=== PATIENT | female | born 1985 | race Caucasian/White ===

== ENCOUNTER 2021-09-11 18:18 | Emergency (ER) | payer MEDICAID, OTHER ==
[~2021-09-11] VITALS: Ht 175.3 cm; Wt 124.3 kg
--- OUTSIDE RECORDS SUMMARY | 2021-09-11 18:24 | XMS REPORT | Encounter Summary ---
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 documented as of this encounter Functional Status Date of Assessment Functional Status Response 09/26/2019 Does the patient have a hearing impairment: No documented as of this encounter Plan of Treatment Not on filedocumented as of this encounter Visit Diagnoses Not on filedocumented in this encounter Care Teams Start Date End Date Truck Bench Mechanic Relationship Specialty 09/21/19 No PcpMartha PCP - General documented as of this encounter
--- OUTSIDE RECORDS SUMMARY | 2021-09-11 18:24 | XMS REPORT ---
Author Author Sierra Holloway [facility] Address [address] [place], [place] [id number] Care Team Providers Care Regulatory Specialist Name Role Phone Savanah Holloway PCP Crispin Shi PreferredProvider Allergies and Adverse Reactions Name Reaction Notes Cipro itching and mouth swells Compazine anaphylaxis Percocet hives and mouth swelling Plan of Treatment Planned Activity Comments Planned Date Planned Time Plan/Goal Coproporphyia 11/20/2019 9:00 AM HIDA SCAN. 11/14/2020 12:00 AM Medications Active Name Start Date Estimated Completion Date SIG Co mments One Touch Verio glucometer 01/08/2020 Use as directe d to test glucose QID Vyvanse 30 mg oral capsule 08/12/2021 10/11/2021 take 1 capsule (30 mg) by oral route once daily in the morning for 30 days Name Start Date Expiration Date SIG Comments Diflucan 150 mg oral tablet 08/28/2014 08/29/2014 take 1 tablet (150 mg) by oral route once for 1 day K-Tab 20 mEq oral tablet extended release 10/29/2014 015 take 2 tablets by oral route daily for 30 days promethazine 12.5 mg oral tablet 11/07/2014 11/21/2014 take 1 tablet by oral route every 4 to 6 hours as needed for 14 days Tylenol-Codeine #3 300-30 mg oral tablet 12/03/2014 12/24/19 15 take 1 tablet by oral route every 6 hours as needed for 20 days ParaGard T 380A 380 square mm intrauterine intrauterine irving ce 01/10/2015 01/11/2015 place 1 device by intrauterine route daily for 1 day Minastrin 24 Fe 1 mg-20 mcg(24) /75 mg (4) oral tablet,chewa ble 08/20/2015 12/10/2015 chew 1 tablet by oral route once daily for 28 days phentermine 37.5 mg oral tablet 08/04/2018 09/03/2018 take 1 tablet (37.5 mg) by oral route once daily before breakfast for 30 days amoxicillin 875 mg oral tablet 08/21/2018 08/31/2018 t edie 1 tablet (875 mg) by oral route every 12 hours for 10 days amoxicillin 500 mg oral capsule 06/14/2019 06/21/2019 take 2 capsules by oral route every 12 hours for 7 days phentermine 37.5 mg oral tablet 07/06/2019 08/05/2019 take 1 tablet (37.5 mg) by oral route once daily one or two hours after breakfast for 30 days Vitamin oral Does n ot take medication Metrogel Vaginal 0.75 % vaginal gel 08/21/2019 08/26/2019 insert 1 applicatorful (37.5 mg) by vaginal route once daily at bedtime for 5 days States does not use sertraline 50 mg oral tablet 03/19/2020 04/18/2020 tessa e 1 tablet (50 mg) by oral route once daily for 30 days States does not take diclofenac sodium 50 mg oral tablet,delayed release (DR/EC) 201905/11/2020 take 1 tablet (50 mg) by oral route 2 times per day for 30 days States does not take phentermine 37.5 mg oral tablet 05/07/2020 06/06/2020 take 1 tablet (37.5 mg) by oral route once daily before breakfast for 30 days Medrol (Nick) 4 mg oral tablets,dose pack 08/25/2020 020 take by oral route as directed per package instructions for 6 days azithromycin 250 mg oral tablet 08/25/2020 08/30/2020 take 2 tablets (500 mg) by oral route once daily for 1 day then 1 tablet (250 mg) by oral route once daily for 4 days clarithromycin 500 mg oral tablet 11/26/2020 12/06/2020 take 1 tablet (500 mg) by oral route 2 times per day for 10 days metronidazole 500 mg oral tablet 11/26/2020 12/03/2020 take 1 tablet (500 mg) by oral route 2 times per day for 7 days Viberzi 75 mg tablet 12/23/2020 01/02/2021 take 1 tabl et (75 mg) by oral route 2 times per day for 10 days amoxicillin 875 mg-potassium clavulanate 125 mg tablet 01/05/2021 01/12/2021 take 1 tablet by oral route every 12 hours for 7 days prednisone 20 mg tablet 01/05/2021 01/10/2021 take 1 t ablet (20 mg) by oral route once daily for 5 days metformin 500 mg oral tablet 01/21/2021 05/21/2021 tessa e 1 tablet (500 mg) by oral route 2 times per day with morning and evening meals for 30 days Breo Ellipta 100 mcg-25 mcg/dose powder for inhalation 02/19/2021 inhale 1 puff by inhalation route once daily at the same time each day Augmentin 875 mg-125 mg tablet 03/12/2021 03/19/2021 t edie 1 tablet by oral route every 12 hours for 7 days prednisone 20 mg tablet 03/18/2021 03/23/2021 Take 2 tabs x 5 d ays; azithromycin 500 mg oral tablet 04/26/2021 04/29/2021 take 1 tablet (500 mg) by oral route once daily for 3 days albuterol sulfate 90 mcg/actuation inhalation HFA aerosol in haler 04/26/2021 05/03/2021 inhale 1 - 2 puffs (90 - 180 mcg) by inh alation route every 6 hours as needed for 7 days metronidazole 500 mg oral tablet 07/16/2021 07/23/2021 take 1 tablet (500 mg) by oral route 2 times per day for 7 days lactulose 10 gram/15 mL oral solution 08/13/2021 08/27/2021 take 15 milliliters by oral route 2 times a day for 14 days Augmentin 875-125 mg oral tablet 09/01/2021 09/08/2021 take 1 tablet by oral route every 12 hours for 7 days Discontinued Name Start Date Discontinued Date SIG Comments Vitamin oral tablet 08/05/2015 tessa e 1 tablet by oral route once daily albuterol sulfate 90 mcg/actuation inhalation HFA aerosol inhale r 09/04/2015 inhale 1 - 2 puffs by inhalation route every 4-6 hours as needed Polytrim 10,000 unit- 1 mg/mL ophthalmic drops 10/30/2015 instill 1 drop into affected eye(s) by ophthalmic route every 6 hours ProAir HFA 90 mcg/actuation inhalation HFA aerosol inhaler 08/0501/21/2021 inhale 1 - 2 puffs (90 - 180 mcg) by inhalation route every 6 hours as needed ondansetron 4 mg oral tablet,disintegrating 11/11/202001/21 dissolve 1 tablet by oral route 3 times a day as needed diclofenac sodium 50 mg oral tablet,delayed release (DR/EC) 202001/21/2021 take 1 tablet (50 mg) by oral route 2 times per day Problem List Description Status Onset Asthma Active Right upper quadrant abdominal pain Active 11/14 ADHD Active 06/05/2021 Anxiety Active 06/05/2021 Porphyria Active 08/04/2021 Vital Signs Date Time BP-Sys(mm[Hg] BP-Johanna(mm[Hg]) HR(bpm) RR(rpm) Temp WT HT HC BMI BSA BMI Percentile O2 Sat(%) 09/11/2021 10:57:00 AM 131 mm[Hg] 76 mm[Hg] 85 {beats}/min 98.4 F 27 6 lbs 69 in 40.7577 kg/m2 2.4688 m2 09/01/2021 9:51:00 AM 128 mm[Hg] 80 mm[Hg] 88 {beats}/min 18 rpm 99 F 274 lbs 69 in 40.46 kg/m2 2.46 m2 99 % 08/04/2021 2:42:00 PM 130 mm[Hg] 80 mm[Hg] 88 {beats}/min 18 rpm 98.8 F 277.312 lbs 69 in 40.9515 kg/m2 2.4746 m2 99 % 08/04/2021 9:12:00 AM 116 mm[Hg] 78 mm[Hg] 108 {beats}/min 20 rpm 97.9 F 274.5 lbs 69 in 40.54 kg/m2 2.46 m2 97 % 07/07/2021 2:55:00 PM 152 mm[Hg] 89 mm[Hg] 94 {beats}/min 99.1 F 27 4 lbs 69 in 40.4623 kg/m2 2.4598 m2 03/12/2021 1:33:00 PM 134 mm[Hg] 86 mm[Hg] 109 {beats}/min 20 rpm 99 F 269 lbs 69 in 39.72 kg/m2 2.44 m2 97 % 01/21/2021 10:20:00 AM 132 mm[Hg] 86 mm[Hg] 78 {beats}/min 18 rpm 98.2 F 270 lbs 69 in 39.8716 kg/m2 2.4418 m2 98 % 12/23/2020 1:07:00 PM 122 mm[Hg] 78 mm[Hg] 105 {beats}/min 18 rpm 99 F 265 lbs 69 in 39.13 kg/m2 2.42 m2 97 % 11/14/2020 1:23:00 PM 128 mm[Hg] 72 mm[Hg] 68 {beats}/min 20 rpm 97.8 F 265 lbs 69 in 39.1333 kg/m2 2.4191 m2 97 % 11/11/2020 3:20:00 PM 132 mm[Hg] 82 mm[Hg] 100 {beats}/min 20 rpm 99 F 273 lbs 69 in 40.31 kg/m2 2.46 m2 98 % 10/07/2020 1:12:00 PM 142 mm[Hg] 82 mm[Hg] 93 {beats}/min 20 rpm 99.1 F 271 lbs 69 in 40.0193 kg/m2 2.4463 m2 99 % 05/07/2020 3:14:00 PM 140 mm[Hg] 80 mm[Hg] 87 {beats}/min 19 rpm 98.6 F 281 lbs 69 in 41.50 kg/m2 2.49 m2 97 % 04/10/2020 3:01:00 PM 120 mm[Hg] 80 mm[Hg] 111 {beats}/min 16 rpm 97.9 F 275 lbs 69 in 40.61 kg/m2 2.4643 m2 99 % 03/18/2020 11:37:00 AM 125 mm[Hg] 80 mm[Hg] 105 {beats}/min 16 rpm 97.9 F 269 lbs 69 in 39.72 kg/m2 2.44 m2 99 % 08/28/2019 4:04:00 PM 133 mm[Hg] 86 mm[Hg] 103 {beats}/min 16 rpm 98.82 7 F 272.375 lbs 69 in 40.2223 kg/m2 2.4525 m2 99 % 08/15/2019 4:07:00 PM 127 mm[Hg] 87 mm[Hg] 83 {beats}/min 98.6 F 273 lbs 69 in 40.31 kg/m2 2.46 m2 07/06/2019 3:36:00 PM 118 mm[Hg] 78 mm[Hg] 88 {beats}/min 18 rpm 98.3 F 273.125 lbs 69 in 40.3331 kg/m2 2.4559 m2 97 % 06/13/2019 4:05:00 PM 120 mm[Hg] 80 mm[Hg] 93 {beats}/min 16 rpm 98.1 F 278 lbs 69 in 41.05 kg/m2 2.48 m2 98 % 08/21/2018 2:39:00 PM 132 mm[Hg] 83 mm[Hg] 76 {beats}/min 18 rpm 98.6 F 246.375 lbs 69 in 36.3829 kg/m2 2.3325 m2 100 % 08/04/2018 2:33:00 PM 120 mm[Hg] 70 mm[Hg] 92 {beats}/min 16 rpm 96.7 F 240 lbs 69 in 35.44 kg/m2 2.30 m2 98 % 07/04/2018 2:17:00 PM 130 mm[Hg] 80 mm[Hg] 80 {beats}/min 18 rpm 98.4 F 244 lbs 69 in 36.0321 kg/m2 2.3212 m2 100 % 01/27/2016 4:04:00 PM 135 mm[Hg] 73 mm[Hg] 75 {beats}/min 98.8 F 21 8 lbs 64 in 37.42 kg/m2 2.11 m2 12/06/2015 3:42:00 PM 120 mm[Hg] 80 mm[Hg] 74 {beats}/min 16 rpm 96.8 F 224 lbs 69 in 33.0787 kg/m2 2.2241 m2 98 % 11/14/2015 7:10:00 PM 134 mm[Hg] 76 mm[Hg] 85 {beats}/min 18 rpm 97.8 F 232.125 lbs 69 in 34.28 kg/m2 2.26 m2 98 % 10/30/2015 5:36:00 PM 126 mm[Hg] 66 mm[Hg] 102 {beats}/min 18 rpm 97.8 F 230.375 lbs 69 in 34.0201 kg/m2 2.2555 m2 98 % 10/25/2015 3:29:00 PM 128 mm[Hg] 80 mm[Hg] 84 {beats}/min 16 rpm 97.8 F 231 lbs 69 in 34.11 kg/m2 2.26 m2 99 % 09/04/2015 5:28:00 PM 132 mm[Hg] 68 mm[Hg] 93 {beats}/min 18 rpm 98.6 F 234.375 lbs 69 in 34.6108 kg/m2 2.275 m2 98 % 08/20/2015 3:55:00 PM 136 mm[Hg] 77 mm[Hg] 85 {beats}/min 98.8 F 232 lbs 69 in 34.26 kg/m2 2.26 m2 08/06/2015 3:42:00 PM 130 mm[Hg] 80 mm[Hg] 86 {beats}/min 16 rpm 97.8 F 231 lbs 69 in 34.1124 kg/m2 2.2586 m2 99 % 08/05/2015 4:10:00 PM 131 mm[Hg] 85 mm[Hg] 85 {beats}/min 98.2 F 232 lbs 69 in 34.26 kg/m2 2.26 m2 06/28/2015 3:20:00 PM 120 mm[Hg] 80 mm[Hg] 97 {beats}/min 16 rpm 97.6 F 248 lbs 69 in 36.6228 kg/m2 2.3402 m2 98 % 01/10/2015 3:31:00 PM 115 mm[Hg] 72 mm[Hg] 71 {beats}/min 97.2 F 233 lbs 69 in 34.41 kg/m2 2.27 m2 01/07/2015 3:57:00 PM 119 mm[Hg] 75 mm[Hg] 65 {beats}/min 97.7 F 238 lbs 69 in 35.1461 kg/m2 2.2925 m2 12/03/2014 10:45:00 AM 143 mm[Hg] 86 mm[Hg] 74 {beats}/min 98 F 2 33 lbs 69 in 34.41 kg/m2 2.27 m2 07/17/2014 11:48:00 AM 116 mm[Hg] 66 mm[Hg] 80 {beats}/min 97.5 F 242 lbs 69.25 in 35.4792 kg/m2 2.3159 m2 Social History Name Description Comments Alcohol Never Tobacco Never smoker No history of foreign travel Vapor Cigarettes Never History of Procedures Date Ordered Description Order Status 08/05/2015 12:00 AM ASSAY THYROID STIM HORMONE Reviewed 08/05/2015 12:00 AM ASSAY OF GONADOTROPIN ([facility]) Reviewed 08/05/2015 12:00 AM ASSAY OF PROLACTIN Reviewed 08/05/2015 12:00 AM COMPREHEN METABOLIC PANEL Reviewed 08/05/2015 12:00 AM COMPLETE CBC AUTOMATED Reviewed 08/12/2015 12:00 AM US EXAM PELVIC COMPLETE Reviewed 10/25/2015 12:00 AM COMPLETE CBC W/AUTO DIFF WBC Reviewed 10/25/2015 12:00 AM COMPREHEN METABOLIC PANEL Reviewed 10/25/2015 12:00 AM GLYCOSYLATED HEMOGLOBIN TEST Reviewed 11/14/2015 12:00 AM Phenergan, Up to [address] [facility]#8210-4424-25 Reviewed 11/24/2015 12:00 AM THER/PROPH/DIAG INJ SC/IM Reviewed 11/24/2015 12:00 AM REMOVE IMPACTED EAR WAX UNI Reviewed 01/27/2016 12:00 AM REMOVE INTRAUTERINE DEVICE Reviewed 06/13/2019 12:00 AM CUL BACT XCPT URINE BLOOD/STOOL AEROBIC ISOL Reviewed 08/15/2019 4:36 PM URINE TEST Reviewed 08/15/2019 12:00 AM CYTOPATH C/V THIN LAYER Reviewed 08/15/2019 12:00 AM SPECIMEN HANDLING OFFICE-LAB Reviewed 08/15/2019 12:00 AM N.GONORRHOEAE DNA AMP PROB Reviewed 08/15/2019 12:00 AM CHLAMYDIA CULTURE Reviewed 08/15/2019 12:00 AM HIV-1ANTIBODY Reviewed 08/15/2019 12:00 AM URINALYSIS AUTO W/SCOPE Reviewed 08/15/2019 12:00 AM OBSTETRIC PANEL Reviewed 08/15/2019 12:00 AM ASSAY OF FERRITIN Reviewed 08/15/2019 12:00 AM URINE DRUG SCREEN RAPID Reviewed 08/15/2019 12:00 AM GLUCOSE TEST Reviewed 08/15/2019 12:00 AM HEPATITIS C AB TEST Reviewed 08/15/2019 12:00 AM HERPES SIMPLEX TYPE 1 TEST Reviewed 08/15/2019 12:00 AM HERPES SIMPLEX TYPE 2 TEST Reviewed 08/15/2019 12:00 AM DETECT AGENT NOS DNA AMP Reviewed 08/15/2019 12:00 AM TRICHOMONAS VAGINALIS AMPLIF Reviewed 08/28/2019 12:00 AM US PREG UTERUS REAL TIME W/IMAGE DCMTN T RANSVAG Reviewed 10/31/2019 12:00 AM Consult/Referral Reviewed 11/20/2019 12:00 AM Progenity Testing Reviewed 12/25/2019 12:00 AM GLUCOSE TOLERANCE TEST (GTT) Reviewed 12/25/2019 12:00 AM COMPLETE CBC W/AUTO DIFF WBC Reviewed 12/25/2019 12:00 AM Type and screen Reviewed 12/25/2019 12:00 AM ASSAY OF FERRITIN Reviewed 12/25/2019 12:00 AM SYPHILIS TEST NON-TREPONEMAL ANTIBODY QU AL Reviewed 12/25/2019 12:00 AM COMPREHEN METABOLIC PANEL Reviewed 12/25/2019 12:00 AM BILE ACIDS TOTAL Reviewed 03/18/2020 12:00 AM COMPLETE CBC W/AUTO DIFF WBC Reviewed 03/18/2020 12:00 AM COMPREHEN METABOLIC PANEL Reviewed 03/18/2020 12:00 AM GLYCOSYLATED HEMOGLOBIN TEST Reviewed 04/10/2020 12:00 AM RADIOLOGIC EXAMINATION KNEE 3 VIEWS Revi ewed 04/12/2020 12:00 AM MRI JNT OF LWR EXTRE W/O DYE Reviewed 11/14/2020 12:00 AM ECHO EXAM OF ABDOMEN Reviewed 11/11/2020 12:00 AM COMPLETE CBC W/AUTO DIFF WBC Reviewed 11/11/2020 12:00 AM COMPREHEN METABOLIC PANEL Reviewed 11/11/2020 12:00 AM ASSAY THYROID STIM HORMONE Reviewed 11/11/2020 12:00 AM ASSAY OF INSULIN Reviewed 11/11/2020 12:00 AM ASSAY OF AMYLASE Reviewed 11/11/2020 12:00 AM ASSAY OF LIPASE Reviewed 02/25/2021 12:00 AM COVID-19 Testing Returned 07/07/2021 12:00 AM ASSAY OF GONADOTROPIN (FSH) Reviewed 07/07/2021 12:00 AM ASSAY OF PROLACTIN Reviewed 07/07/2021 12:00 AM COMPREHEN METABOLIC PANEL Reviewed 07/07/2021 12:00 AM US EXAM PELVIC COMPLETE Reviewed 07/07/2021 12:00 AM TRANSVAGINAL US NON-OB Reviewed 07/07/2021 12:00 AM COMPLETE CBC AUTOMATED Reviewed 07/07/2021 12:00 AM ASSAY OF ESTRADIOL Reviewed 07/07/2021 12:00 AM ASSAY THYROID STIM HORMONE Reviewed 07/07/2021 12:00 AM TRICHOMONAS ASSAY W/OPTIC Reviewed 07/07/2021 12:00 AM SPECIMEN HANDLING OFFICE-LAB Reviewed 07/28/2021 12:00 AM US EXAM PELVIC COMPLETE Reviewed 07/28/2021 12:00 AM TRANSVAGINAL US NON-OB Reviewed 08/04/2021 12:00 AM IMMUNIZATION ADMIN Reviewed 08/04/2021 12:00 AM FLU VAC NO PRSV 4 MARGIE 6-35 M Reviewed 08/04/2021 12:00 AM TEST FOR PORPHOBILINOGEN Reviewed 08/04/2021 12:00 AM ASSAY OF PORPHOBILINOGEN Reviewed 08/04/2021 12:00 AM ASSAY OF URINE CREATININE Reviewed 08/04/2021 12:00 AM ASSAY OF AMMONIA Reviewed 08/28/2021 12:00 AM ASSAY OF AMMONIA Returned 08/28/2021 12:00 AM HEPATIC FUNCTION PANEL Returned 07/31/2014 12:00 AM OB US LIMITED FETUS(S) Reviewed 07/17/2014 12:11 PM CYTOPATH C/V THIN LAYER Reviewed 07/17/2014 12:11 PM SPECIMEN HANDLING OFFICE-LAB Reviewed 07/18/2014 12:00 AM ASSAY THYROID STIM HORMONE Reviewed 07/18/2014 12:00 AM HIV-1ANTIBODY Reviewed 07/18/2014 12:00 AM OBSTETRIC PANEL Reviewed 07/18/2014 12:00 AM HEPATITIS C AB TEST Reviewed 08/09/2014 12:00 AM ASSAY OF SERUM POTASSIUM Reviewed 08/29/2014 12:00 AM OB US LIMITED FETUS(S) Reviewed 08/22/2014 12:00 AM ASSAY OF SERUM POTASSIUM Reviewed 09/03/2014 12:00 AM Type and screen Reviewed 09/03/2014 12:00 AM GLUCOSE TOLERANCE TEST (GTT) Reviewed 09/03/2014 12:00 AM COMPLETE CBC W/AUTO DIFF WBC Reviewed 09/03/2014 12:00 AM ASSAY OF SERUM POTASSIUM Reviewed 09/21/2014 12:00 AM ASSAY OF SERUM POTASSIUM Reviewed 09/28/2014 12:00 AM URINALYSIS Reviewed 09/28/2014 12:00 AM URINE CULTURE/COLONY COUNT Reviewed 10/04/2014 12:00 AM OB US LIMITED FETUS(S) Reviewed 10/04/2014 12:00 AM ASSAY OF SERUM POTASSIUM Reviewed 10/09/2014 12:00 AM ASSAY OF SERUM POTASSIUM Reviewed 10/22/2014 12:00 AM CULTURE SCREEN ONLY Reviewed 10/22/2014 12:00 AM ASSAY OF SERUM POTASSIUM Reviewed 10/22/2014 12:00 AM Urine Drug Screen Reviewed 01/07/2015 12:00 AM CYTOPATH C/V THIN LAYER Reviewed 01/07/2015 12:00 AM SPECIMEN HANDLING OFFICE-LAB Reviewed 01/07/2015 12:00 AM CHLAMYDIA CULTURE Reviewed 01/07/2015 12:00 AM N.GONORRHOEAE DNA AMP PROB Reviewed 01/10/2015 3:39 PM URINE TEST Reviewed 01/10/2015 12:00 AM INSERT INTRAUTERINE DEVICE Reviewed 01/10/2015 12:00 AM Paraguard T380A -INTRAUTERINE COPPER CON TRACEPTIVE Reviewed Results Summary Date and Description Results 07/18/2014 3:10 PM WBC 10.6 RBC 4.28 HGB 11.80 g/dLHCT 35.10 %MCV 82.0 fLMCH 27.60 pgMCHC 33.60 g/dLRDW SD 42 RDW CV 13.90 %MPV 10.0 fLPLT 183 NRBC# 0.00 NRBC% 0.0 %NEUT 75.70 %%LYMP 18.60 %%MONO 3.80 %%EOS 1.80 %%BASO 0.10 %#NEUT 8.04 #LYMP 1.97 #MONO 0.40 #EOS 0.19 #BASO 0.01 MANUAL DIFF NOT IND HBsAg Screen Negative RPR Non Reactive HEPATITIS C 0.07 HIV AG/AB COMBO 0.16 TSH 0.990 uIU/mL 08/22/2014 10:10 AM POTASSIUM 3.20 mmol/L 09/03/2014 2:45 PM POTASSIUM 3.10 mmol/LWBC 10. 0 RBC 4.31 HGB 11.80 g/dLHCT 35.60 %MCV 83.0 fLMCH 27.40 pgMCHC 33.10 g/dLRDW SD 43 RDW CV 14.10 %MPV 10.50 fLPLT 183 NRBC# 0.00 NRBC% 0.0 %NEUT 76.20 %%LYMP 18.10 %%MONO 4.20 %%EOS 1.30 %%BASO 0.20 %#NEUT 7.65 #LYMP 1.82 #MONO 0.42 #EOS 0.13 #BASO 0.02 MANUAL DIFF NOT IND 09/28/2014 1:20 PM POTASSIUM 3.0 mmol/LCOLOR YE LLOW APPEARANCE HAZY SPEC GRAV >=1.030 pH 6.0 PROTEIN NEGATIVE GLUCOSE NEGATIVE KETONE TRACE BILIRUBIN NEGATIVE BLOOD NEGATIVE NITRITE NEGATIVE LEUK SCREEN NEGATIVE WBC/HPF 0-5 RBC/HPF NEGATIVE CASTS/LPF NEGATIVE CRYSTALS NEGATIVE MUCOUS THRDS 1+ BACTERIA 1+ EPITH CELLS 2++ SQUAMOUS TRICHOMONAS NEGATIVE YEAST NEGATIVE CULT SET UP? NO 10/04/2014 4:35 PM POTASSIUM 3.50 mmol/L 10/09/2014 12:15 PM POTASSIUM 3.20 mmol/L 10/22/2014 4:22 PM POTASSIUM 3.10 mmol/L 01/10/2015 3:46 PM HCG Ur Ql Negative 08/05/2015 4:45 PM WBC 8.6 RBC 4.87 HGB 13.20 g /dLHCT 39.80 %MCV 82.0 fLMCH 27.10 pgMCHC 33.20 g/dLRDW SD 43 RDW CV 14.30 %MPV 9.90 fLPLT 200 NRBC# 0.00 NRBC% 0.0 %NEUT 59.50 %%LYMP 33.0 %%MONO 5.40 %%EOS 1.90 %%BASO 0.20 %#NEUT 5.11 #LYMP 2.83 #MONO 0.46 #EOS 0.16 #BASO 0.02 MANUAL DIFF NOT IND FSH 5.70 mIU/mLTSH 1.640 uIU/mLGLUCOSE 88.0 mg/dLSODIUM 138.0 mmol/LPOTASSIUM 3.80 mmol/LCHLORIDE 103.0 mmol/LCO2 27.0 mmol/LBUN 7.0 mg/dLCREATININE 0.70 mg/dL SGOT/AST 16.0 IU/LSGPT/ALT 24.0 IU/LALK PHOS 72.0 IU/LTOTAL PROTEIN 7.70 g/dLALBUMIN 4.50 g/dLTOTAL BILI 0.40 mg/dLCALCIUM 9.80 mg/dLAGE 29 GFR NonAA 99 GFR AA 120 eGFR >60 mL/min/1.73 m2eGFR AA* >60 Prolactin 11.80 ng/mL 10/25/2015 4:10 PM WBC 9.1 RBC 4.69 HGB 12.90 g /dLHCT 38.50 %MCV 82.0 fLMCH 27.50 pgMCHC 33.50 g/dLRDW SD 41 RDW CV 13.70 %MPV 9.60 fLPLT 181 NRBC# 0.00 NRBC% 0.0 %NEUT 62.60 %%LYMP 28.70 %%MONO 7.50 %%EOS 1.0 %%BASO 0.20 %#NEUT 5.69 #LYMP 2.61 #MONO 0.68 #EOS 0.09 #BASO 0.02 MANUAL DIFF NOT IND GLUCOSE 86.0 mg/dLSODIUM 142.0 mmol/LPOTASSIUM 3.40 mmol/LCHLORIDE 105.0 mmol/LCO2 27.0 mmol/LBUN 9.0 mg/dLCREATININE 0.70 mg/dLSGOT/AST 17.0 IU/LSGPT/ALT 25.0 IU/LALK PHOS 61.0 IU/LTOTAL PROTEIN 6.80 g/dLALBUMIN 4.10 g/dLTOTAL BILI 0.40 mg/dLCALCIUM 9.30 mg/dLAGE 30 GFR NonAA 98 GFR AA 119 eGFR >60 mL/min/1.73 m2eGFR AA* >60 Hemoglobin A1c 5.10 %Estim. Avg Glu (eAG) 100 08/15/2019 4:36 PM Test, Urine positi ve 08/15/2019 6:26 PM RPR Non Reactive HIV AG/AB C OMBO 0.12 FERRITIN 62.0 ng/mLCOLOR Yellow CLARITY Turbid SPEC GRAV 1.025 pH 5.0 PROTEIN Negative GLUCOSE Normal KETONE Negative BILIRUBIN Negative BLOOD Negative NITRITE Negative LEUK SCREEN Negative RBC/HPF 0-3 WBC/HPF 0-5 BACTERIA/HPF None Seen SQUAMOUS EPI/LPF 4+ MUCOUS/LPF 4+ CA OX ARIN/HPF 4+ CULT ORDERED YES Cannabinoids (THC) NEGATIVE Phencyclidine (PCP) NEGATIVE Cocaine NEGATIVE Methamphetamine NEGATIVE Opiates NEGATIVE Amphetamine NEGATIVE Benzodiazepines NEGATIVE ng/mLTricyclic Antidepres NEGATIVE Methadone NEGATIVE Barbiturates NEGATIVE Oxycodone NEGATIVE Propoxyphene (PPX) NEGATIVE WBC 10.1 RBC 4.94 HGB 13.80 g/dLHCT 41.30 %MCV 84.0 fLMCH 27.90 pgMCHC 33.40 g/dLRDW SD 40 fLRDW CV 13.30 %MPV 9.0 fLPLT 232 x10E3/uLNRBC# 0.00 NRBC% 0.0 %NEUT 69.3 %LYMP 24.2 %MONO 4.2 %EOS 1.3 %BASO 0.2 #NEUT 7.03 #LYMP 2.45 #MONO 0.43 #EOS 0.13 #BASO 0.02 OB MANUAL DIFF NOT IND HBsAg Screen Negative Hep C Virus Ab 0.1 HSV 1 IgG, Type Spec <0.91 IndexHSV 2 IgG, Type Spec <0.91 Index 12/25/2019 10:00 AM GLUCOSE 201 SODIUM 135 POTAS SIUM 2.9 CHLORIDE 104.0 mmol/LCO2 20 BUN 3.0 mg/dLCREATININE 0.550 mg/dLSGOT/AST 14 SGPT/ALT 9 ALK PHOS 68 TOTAL PROTEIN 6.4 ALBUMIN 3.2 TOTAL BILI 0.3 CALCIUM 8.90 mg/dLAGE 34 GFR NonAA 127 GFR AA 154 eGFR 127 mL/min/1.73meGFR AA* >60 mL/min/1.73mWBC 7.5 RBC 4.47 HGB 12.30 g/dLHCT 36.0 %MCV 81.0 fLMCH 27.50 pgMCHC 34.20 g/dLRDW SD 41 fLRDW CV 14.10 %MPV 9.70 fLPLT 181 x10E3/uLNRBC# 0.00 NRBC% 0.0 %NEUT 74.3 %LYMP 18.7 %MONO 4.4 %EOS 0.8 %BASO 0.3 #NEUT 5.54 #LYMP 1.39 #MONO 0.33 #EOS 0.06 #BASO 0.02 MANUAL DIFF NOT IND FERRITIN 13.0 ng/mLRPR Non Reactive Bile Acids 2.4 03/18/2020 12:25 PM HGB A1C 5.40 %Est Avg Glucos e 108.3 WBC 7.8 RBC 5.11 HGB 12.60 g/dLHCT 40.70 %MCV 80.0 fLMCH 24.70 pgMCHC 31.0 g/dLRDW SD 39 fLRDW CV 13.40 %MPV 9.60 fLPLT 337 x10E3/uLNRBC# 0.00 NRBC% 0.0 %NEUT 58.9 %LYMP 28.7 %MONO 7.8 %EOS 3.5 %BASO 0.8 #NEUT 4.59 #LYMP 2.23 #MONO 0.61 #EOS 0.27 #BASO 0.06 MANUAL DIFF NOT IND GLUCOSE 74 SODIUM 141 POTASSIUM 4.2 CHLORIDE 104.0 mmol/LCO2 27 BUN 10.0 mg/dLCREATININE 0.640 mg/dLSGOT/AST 26 SGPT/ALT 53 ALK PHOS 119 TOTAL PROTEIN 7.6 ALBUMIN 4.4 TOTAL BILI 0.3 CALCIUM 10.80 mg/dLAGE 34 GFR NonAA 106 GFR AA 128 eGFR 106 mL/min/1.73meGFR AA* >60 mL/min/1.73m 11/11/2020 4:30 PM WBC 11.8 RBC 5.13 HGB 12.80 g/dLHCT 40.70 %MCV 79.0 fLMCH 25.0 pgMCHC 31.40 g/dLRDW SD 40 %RDW CV 13.90 %MPV 10.30 fLPLT 277 x10E3/uLNRBC# 0.00 NRBC% 0.0 %NEUT 62.4 %LYMP 28.6 %MONO 6.8 %EOS 0.9 %BASO 0.7 #NEUT 7.33 #LYMP 3.36 #MONO 0.80 #EOS 0.11 #BASO 0.08 MANUAL DIFF NOT IND GLUCOSE 84 SODIUM 139 POTASSIUM 3.8 CHLORIDE 104.0 mmol/LCO2 26 BUN 8.0 mg/dLCREATININE 0.50 mg/dLSGOT/AST 25 SGPT/ALT 37 ALK PHOS 92 TOTAL PROTEIN 7.3 ALBUMIN 4.1 TOTAL BILI 0.4 CALCIUM 9.60 mg/dLAGE 35 GFR NonAA 140 GFR AA 170 eGFR 140 mL/min/1.73meGFR AA* >60 mL/min/1.73mAMYLASE 49 U/LLIPASE 73 TSH 0.76 Insulin 325.6 07/07/2021 3:51 PM WBC 10.8 RBC 5.20 HGB 12.70 g/dLHCT 39.80 %MCV 77.0 fLMCH 24.40 pgMCHC 31.90 g/dLRDW SD 40 %RDW CV 14.70 %MPV 9.40 fLPLT 265 x10E3/uLNRBC# 0.00 NRBC% 0.0 GLUCOSE 90 SODIUM 138 POTASSIUM 3.8 CHLORIDE 104.0 mmol/LCO2 27 BUN 7.0 mg/dLCREATININE 0.50 mg/dLSGOT/AST 42 SGPT/ALT 57 ALK PHOS 96 TOTAL PROTEIN 7.8 ALBUMIN 4.3 TOTAL BILI 0.3 CALCIUM 10.30 mg/dLAGE 35 GFR NonAA 140 GFR AA 170 eGFR 140 mL/min/1.73meGFR AA* >60 mL/min/1.73mPROLACTIN 19.2 FSH 7.8 TSH W/REFLEX 0.72 Estradiol 45.80 pg/mL 08/04/2021 4:12 PM AMMONIA 34 ug/dLCREAT UR RAN D 99.1 Porphobilinogen, Qn,Random Ur 0.9 History Of Immunizations Name Date Admin Mfg Name Mfg Code Trade Name Lot# Route Inj Vis Given Vis Pub CVX Influenza 08/04/2021 StartMe SKB Flulaval quadrivalent [id number] Intramuscular Left Deltoid 08/04/2021 2021 158 History of Past Illness Name Date of Onset Comments Diabetes, Gestational Asthma Porphyruria Right upper quadrant abdominal pain 11/14/2020 Insulin resistance ADHD 06/05/2021 Anxiety 06/05/2021 Porphyria 08/04/2021 Low lying placenta Jul 17 2014 12:01PM Care, Other Normal Jul 17 2014 11:50AM , Other Normal Jul 18 2014 1:56PM Hypokalemia Aug 09 2014 1:54PM Large For Dates, Antepartum Aug 22 2014 9:31AM Hypokalemia Aug 22 2014 9:34AM , Other Normal Sep 03 2014 1:38PM , Other Normal Sep 03 2014 1:47PM Hypokalemia Sep 03 2014 1:47PM Hypokalemia Sep 21 2014 9:20AM , Other Normal Sep 21 2014 9:20AM Dysuria Sep 28 2014 9:18AM Large For Dates, Antepartum Oct 01 2014 2:39PM , High Risk Oct 04 2014 4:34PM Hypokalemia Oct 04 2014 4:34PM Obesity complicating Oct 09 2014 11:44AM Group B Strep Screening, Oct 22 2014 2:50PM Obesity complicating Oct 22 2014 2:50PM Obesity complicating Oct 22 2014 3:05PM Hypokalemia Oct 22 2014 3:05PM Gestational hypertension Nov 05 2014 4:16PM Varicose ulceration Dec 03 2014 10:52AM Post- Follow-Up Jan 07 2015 4:00PM Special investigations and examinations; examination or test; examination or test, negative result Jan 10 2015 3:39PM IUD insertion Jan 10 2015 4:00PM Overweight Jun 28 2015 3:22PM Body Mass Index [BMI]; body mass index b etween 30-39, adult; body mass index 36.0-36.9, adult Jun 28 2015 3:22PM Polyphagia Jun 28 2015 3:22PM Abnormal Uterine Bleeding Aug 05 2015 4:14PM Excessive Or Frequent Menstruation Aug 05 2015 4:14PM Pelvic Pain Aug 06 2015 1:53PM Menorrhagia Aug 06 2015 1:53PM Metrorrhagia Aug 06 2015 1:53PM Overweight Aug 06 2015 3:44PM Body Mass Index [BMI]; body mass index b etween 30-39, adult; body mass index 34.0-34.9, adult Aug 06 2015 3:44PM Polyphagia Aug 06 2015 3:44PM Menorrhagia Aug 20 2015 3:58PM Pharyngitis Sep 04 2015 5:29PM Mild persistent asthma without complication Oct 25 2015 3:3 0PM Hyperglycemia Oct 25 2015 3:30PM Family history of diabetes mellitus (DM) Oct 25 2015 3:30PM BMI 34.0-34.9,adult Oct 25 2015 3:30PM Dietary counseling and surveillance Oct 25 2015 3:30PM Hordeolum externum (stye), right Oct 30 2015 5:38PM Impacted cerumen of right ear Nov 14 2015 7:11PM Impacted cerumen of right ear Nov 24 2015 6:00PM Excessive cerumen in ear canal, left Nov 24 2015 6:00PM Overweight Dec 06 2015 3:44PM Body Mass Index [BMI]; body mass index b etween 30-39, adult; body mass index 33.0-33.9, adult Dec 06 2015 3:44PM Polyphagia Dec 06 2015 3:44PM IUD removal Jan 27 2016 4:06PM Polyphagia Jul 04 2018 2:19PM BMI 36.0-36.9,adult Jul 04 2018 2:19PM Polyphagia Aug 04 2018 2:35PM BMI 35.0-35.9,adult Aug 04 2018 2:35PM Left otitis media Aug 21 2018 2:41PM Sore throat Jun 13 2019 4:07PM Polyphagia Jul 06 2019 3:40PM BMI 40.0-44.9, adult Jul 06 2019 3:40PM test confirmed positive Aug 15 2019 4:13PM Obesity Aug 15 2019 4:13PM History of pre-eclampsia Aug 15 2019 4:13PM Previous delivery, antepartum Aug 15 2019 4:13PM Encounter for supervision of normal preg nisha in multigravida in first trimester Aug 28 2019 4:34PM Porphyria Oct 31 2019 3:32PM Normal in multigravida in second trimester Nov 20 2019 3:00PM High risk for intrapartum complications in second trimester Dec 25 2019 9:01AM Hypertension affecting in second trimester Dec 25 2019 9:01AM Obesity affecting in second trimester Dec 25 2019 9:01AM Diseases of the skin and subcutaneous ti ssue complicating , second trimester Dec 25 2019 9:01AM Pruritus, unspecified Dec 25 2019 9:01AM History of gestational diabetes Mar 18 2020 12:03PM Other mental disorders complicating the puerperium Mar 18 12:03PM depression Mar 18 2020 12:03PM Insulin controlled gestational diabetes mellitus (GDM) in third trimester Mar 18 2020 11:38AM Other mental disorders complicating the puerperium Mar 18 11:38AM depression Mar 18 2020 11:38AM Acute pain of right knee Apr 10 2020 3:02PM Swelling of knee joint, right Apr 10 2020 3:02PM Right knee pain Apr 12 2020 9:25AM Polyphagia May 07 2020 3:17PM BMI 40.0-44.9, adult May 07 2020 3:17PM COVID-Aug 05 2020 11:59AM Headache Aug 05 2020 11:59AM Cough Aug 05 2020 11:59AM Sinusitis Aug 25 2020 2:44PM Otalgia of both ears Aug 25 2020 2:44PM ADHD Oct 07 2020 1:15PM Anxiety Oct 07 2020 1:15PM RUQ pain Nov 11 2020 3:23PM Nausea Nov 11 2020 3:23PM Weight gain Nov 11 2020 3:23PM Right upper quadrant pain Nov 14 2020 1:09PM Nausea Nov 14 2020 1:09PM Right upper quadrant abdominal pain Nov 14 2020 1:23PM Abdominal pain, RUQ Nov 14 2020 4:27PM Nausea Nov 14 2020 4:27PM ADHD Nov 11 2020 3:23PM RUQ pain Dec 23 2020 1:10PM Diarrhea Dec 23 2020 1:10PM Insulin resistance Dec 23 2020 1:10PM ADHD Dec 23 2020 1:10PM Sinusitis Jan 05 2021 3:49PM Daytime somnolence Jan 21 2021 10:21AM Snorings Jan 21 2021 10:21AM Insulin resistance Jan 21 2021 10:21AM Close exposure to severe acute respiratory syndrome co ronavirus 2 (SARS-CoV-2) Feb 25 2021 8:27AM Cough Feb 25 2021 8:27AM Body aches Feb 25 2021 8:27AM Headache Feb 25 2021 8:27AM Acute non-recurrent frontal sinusitis Mar 12 2021 1:36PM Sinusitis Mar 17 2021 11:41AM Sore throat Mar 17 2021 11:41AM Cough Apr 26 2021 10:24AM Headache Apr 26 2021 10:24AM Ear pain Apr 26 2021 10:24AM Sinus pressure Apr 26 2021 10:24AM Sinusitis Apr 26 2021 10:24AM Counseled about COVID-19 virus infection Jun 05 2021 5:15PM ADHD Jun 05 2021 5:15PM Anxiety Jun 05 2021 5:15PM Abnormal Uterine Bleeding Jul 07 2021 3:03PM Menorrhagia Jul 07 2021 3:03PM Metrorrhagia Jul 07 2021 3:03PM Vaginal discharge Jul 07 2021 3:03PM Abnormal uterine bleeding Jul 08 2021 9:45AM Encounter for occupational health examination Aug 04 2021 9 :15AM Porphyria, unspecified porphyria type Aug 04 2021 3:01PM Confusion Aug 04 2021 3:01PM Generalized abdominal pain Aug 04 2021 3:01PM Porphyria Aug 04 2021 2:44PM Confusion Aug 04 2021 2:44PM Abdominal pain Aug 04 2021 2:44PM Nausea Aug 04 2021 2:44PM Elevated liver enzymes Aug 28 2021 10:14AM Confusion Aug 28 2021 10:14AM Porphyria Aug 28 2021 10:14AM Acute maxillary sinusitis Sep 01 2021 9:53AM Axillary lymphadenopathy Sep 11 2021 11:02AM Payers Insurance Name Company Name Plan Name Plan Number Policy Number John cy Group Number Start Date [facility] - [facility] [id number] N/A BCBS [facility] [id number] 2015 [facility] Occupational Medicine [id number] N/A [facility] Community [facility] [place] [facility] [id number] N/A History of Encounters Visit Date Visit Type Provider 09/11/[address] LITA ABDUL MD 09/01/2021 Office visit Crispin Shi APR N 08/04/2021 Office visit Crispin Shi APR N 08/04/2021 Office visit Lety Gee HOMEWORKER 07/07/2021 Office visit 07/07/2021 Office visit Geovanny Mcclelland 06/05/2021 Office visit Crispin Shi APR N 04/26/2021 Office visit Oanh SARAVIA RN 03/17/2021 Office visit Crispin Shi APR N 03/12/2021 Office visit Crispin Lermaran APR N 02/26/2021 Hospital Osbaldo Souza MD 02/26/2021 Voided Lety Flynn HOMEWORKER 01/21/2021 Office visit Crispin Shi APR N 01/05/2021 Office visit Coretta King APR N 12/23/2020 Office visit Crispin Lermaran APR N 11/14/[address] Sundeep Mendenhall MD 11/11/2020 Office visit 11/11/2020 Office visit Crispin Shi APR N 10/07/2020 Office visit Crispin Lermaran APR N 08/25/2020 Office visit Oanh SARAVIA RN 08/05/2020 Office visit Crispin Shi APR N 05/07/2020 Office visit Crispin Shi APR N 04/10/2020 Office visit Crispin Shi APR N 03/18/2020 Office visit Crispin Shi APR N 01/22/2020 Office visit Geovanny Mcclelland 01/08/2020 Office visit Geovanny Mcclelland 01/08/2020 Hospital Osbaldo Souza MD 12/25/2019 Office visit Geovanny Mcclelland 11/27/2019 Office visit Geovanny Mcclelland 10/30/2019 Office visit Geovanny Mcclelland 10/02/2019 Office visit Geovanny Mcclelland 09/21/2019 Office visit Geovanny Mcclelland 08/28/[address] Savanah mcclelland MD 08/15/2019 Office visit Leela Solorio n HOMEWORKER 07/06/2019 Office visit Crispin Shi APR N 06/13/2019 Office visit Crispin Shi APR N 08/21/2018 Office visit Mee SARAVIA RN 08/04/2018 Office visit Crispin Shi APR N 07/04/2018 Office visit Crispin Shi APR N 01/27/2016 Office visit Leela Solorio n HOMEWORKER 12/06/2015 Office visit Crispin Shi APR N 11/14/2015 Office visit Crispin Shi APR N 10/30/2015 Office visit Crispin Shi APR N 10/25/2015 Office visit Crispin Shi APR N 09/04/2015 Office visit Ciarra almazan MD 08/20/2015 Office visit Leela Earl Lyndsey n HOMEWORKER 08/06/2015 Office visit Crispin Shi APR N 08/05/2015 Office visit 08/05/2015 Office visit Leela Benzana maria n HOMEWORKER 06/28/2015 Office visit Crispin Lermaran APR N 01/10/2015 Office visit Shaq Sena MD 01/07/2015 Office visit 01/07/2015 Office visit Leela JamesonBarbara Solorio n HOMEWORKER 12/03/2014 Office visit Shaq Sena MD 11/20/2014 [facility] Shaq Sena MD 11/14/2014 [facility] Shaq Sena MD 11/12/2014 Voided Shaq Sena MD 11/12/2014 [facility] Shaq Sena MD 11/12/2014 Office visit Shaq Sena MD 11/07/2014 [facility] Osbaldo Souza MD 11/05/2014 Office visit Herrera Lewis MD 10/29/2014 Office visit Shaq Sena MD 10/29/2014 [facility] Shaq Sena MD 10/22/2014 Office visit Shaq Sena MD 10/09/2014 Office visit Shaq Sena MD 10/06/2014 [facility] Herrera Lewis MD 10/01/2014 Office visit Shaq Sena MD 09/20/2014 Office visit Yamilet Perez MD 09/17/2014 Office visit Leela naqvi APRN 09/03/2014 Office visit Shaq Sena MD 08/22/2014 Office visit Shaq Sena MD 08/07/2014 [facility] Shaq Sena MD 07/30/2014 Office visit Shaq Sena MD 07/30/2014 Voided Leela naqvi APRN 07/17/2014 Office visit Shaq Sena MD 06/29/2014 [facility] Yamilet Perez MD
--- OUTSIDE RECORDS SUMMARY | 2021-09-11 18:24 | XMS REPORT | Clinical Summary ---
Author Author [facility] Organization [facility] Address Unknown Phone Unavailable Care Team Providers Care Pharmacology Teacher Name Role Phone No Pcp, Na PCP Unavailable Source Comments Some departments are not documenting in the electronic medical record. If you d o not see the information that you expected, contact Release of Information in [facility] [employer] Information Management department at [phone] for further assistan ce in locating additional records.[facility] Allergies Comments Active Allergy Reactions Severity Noted Date Ciprofloxacin RASH Medium 09/21/2019 Pt states "makes me quit breathing" Prochlorperazine SHORTNESS OF Medium 09/21/2019 Edisylate BREATH Oxycodone-Acetaminophen HALLUCINATION High 2019 S Medications End Date Status Medication Sig Dispensed Refills Start Date Active diphenhydrAMINE (BENADRYL Take 25 mg by 0 ALLERGY) 25 mg tablet mouth at bedtime daily. Active Take 1 0 [id number] 28 capsule by mg iron- 800 mcg-235 mg mouth daily. cap Active ondansetron (ZOFRAN) 4 mg Take one 30 tablet 0 tablet tablet by 0 mouth every 6 hours as needed. Active Problems Problem Noted Date History of porphyria 09/22/2019 Morbid obesity 09/22/2019 09/21/2019 Resolved Problems Problem Noted Date Resolved Date Nausea & vomiting 09/22/2019 09/26/2019 Abdominal pain 09/22/2019 09/26/2019 Rash 09/21/2019 09/26/2019 Encounters Care Team Description Date Type Specialty 08/07/2021 Emergency Emergency Medicine 08/07/2021 Travel from Last 3 Months Surgical History Surgery Date Site/Laterality Comments SECTION HX APPENDECTOMY HX TONSILLECTOMY DILATION AND CURETTAGE Medical History Medical History Date Comments HCP (hereditary coproporphyria) (HCC) Endometriosis Family History Medical History Relation Name Comments Other Father Porphyria Relation Name Status Comments Father Alive Social History Date Tobacco Use Types Packs/Day Years Used Never Smoker Smokeless Tobacco: Never Used Comments Alcohol Use Standard Drinks/Week Not Currently 0 (1 standard drink = 0.6 o z pure alcohol) Sex Assigned at Date Recorded Not on file Obstetrics History Term Pre Abrt (TAB) (SAB) (Ect) Mult Lvng Comments Grav Para 4 1 1 1 4 8 5 Date GA Total Labor Labor/2nd/3rd Weight Sex Delivery Anes PTL Karla A1 A5 Name Clin Outcome 2007 SAB 2008 Vag-Spont Term 2009 Spontaneous Term 2010 Spontaneous Term 2014 Spontaneous Term 2016 CS-LTranv Last Filed Vital Signs Reading Time Taken Comments Vital Sign 152/94 08/07/2021 3:47 PM SALES AND MARKETING PROFESSIONAL Blood Pressure 98 09/26/2019 8:00 AM SALES AND MARKETING PROFESSIONAL Pulse 36.8 C (98.2 F) 08/07/2021 3:47 PM SALES AND MARKETING PROFESSIONAL Temperature - - Respiratory Rate 100% 08/07/2021 3:47 PM SALES AND MARKETING PROFESSIONAL Oxygen Saturation - - Inhaled Oxygen Concentration 124.3 kg (274 lb) 08/07/2021 3:47 PM SALES AND MARKETING PROFESSIONAL Weight 175.3 cm (5' 9") 08/07/2021 3:47 PM SALES AND MARKETING PROFESSIONAL Height 40.46 08/07/2021 3:47 PM SALES AND MARKETING PROFESSIONAL Body Mass Index Plan of Treatment Health Maintenance Due Date Last Done Comments DTAP/TDAP VACCINES (1 - 2003 Tdap) PHYSICAL (COMPREHENSIVE) 2003 EXAM CERVICAL CANCER SCREENING 2006 INFLUENZA VACCINE 04/06/2021 HEPATITIS C SCREENING Completed 09/22/2019 HIV SCREENING Completed 09/22/2019 Procedures Comments Procedure Name Priority Date/Time Associated Diag nosis ECG-SCAN 08/07/2021 12:00 AM SALES AND MARKETING PROFESSIONAL ECG-SCAN 08/07/2021 12:00 AM SALES AND MARKETING PROFESSIONAL from Last 3 Months Results * ECG-SCAN (08/07/2021 12:00 AM SALES AND MARKETING PROFESSIONAL) Narrative 08/07/2021 12:00 AM SALES AND MARKETING PROFESSIONAL Ordered by an unspecified provider. * ECG-SCAN (08/07/2021 12:00 AM SALES AND MARKETING PROFESSIONAL) Narrative 08/07/2021 12:00 AM SALES AND MARKETING PROFESSIONAL Ordered by an unspecified provider. from Last 3 Months Insurance Type Payer Benefit Subscriber ID Effective Phone Address Plan / Dates Group Medicaid [facility] MEDICAID [facility] [id number] 2019-P [address] [place] [address] [address] [facility] (Home) [place] [address] Advance Directives Patient Shed Hand Explanation Type Date Recorded Advance 09/22/2019 12:37 PM Directive/DPOA Date Inactivated Comments Code Status Date Activated 09/26/2019 5:14 PM Full Code 09/21/2019 10:55 PM Provider has discussed Code Status No, more discussi on w/Patient or Family? needed Care Teams Start Date End Date Pharmacology Teacher Relationship Specialty 09/21/19 No Pcp, Na PCP - General
--- OUTSIDE RECORDS SUMMARY | 2021-09-11 18:24 | XMS REPORT ---
Author Author [facility] Address [address] [place], [place] [id number] Care Team Providers Care Truck Repair Supervisor Name Role Phone Crispin Shi PCP Crispin Shi PreferredProvider Allergies and Adverse [...] daily in the morning for 30 days Augmentin 875-125 mg oral tablet 09/01/2021 09/08/2021 take 1 tablet by oral route every 12 hours for 7 days Name Start Date Expiration Date SIG [...] 2 times a day for 14 days Discontinued Name Start Date Discontinued Date [...] HC BMI BSA BMI Percentile O2 Sat(%) 09/01/2021 9:51:00 AM 128 mm[Hg] 80 mm[Hg] 88 {beats}/min 18 rpm 99 F 274 lbs 69 in 40.4623 kg/m2 2.4598 m2 99 % 08/04/2021 2:42:00 PM 130 mm[Hg] 80 mm[Hg] 88 {beats}/min 18 rpm 98.8 F 277.312 lbs 69 in 40.95 kg/m2 2.47 m2 99 % 08/04/2021 9:12:00 AM 116 [...] 12:00 AM Phenergan, Up to 50 Mg FORMERLY NAMED [facility]#[id number] Reviewed 11/24/2015 12:00 AM THER/PROPH/DIAG INJ SC/IM [...] Vis Given Vis Pub CVX Influenza 08/04/2021 [facility] Flulaval quadrivalent [id number] Intramuscular Left [...] Acute maxillary sinusitis Sep 01 2021 9:53AM Payers Insurance Name Company Name Plan Name Plan Number Policy Number John cy Group Number Start Date [facility] - Community [facility] ealthCare [facility] Comm [id number] N/A BCBS [employer] [place] [id number] 2015 [facility] Med Occupational Medicine [id number] N[facility]A [facility] [id number] N/A History of Encounters Visit Date Visit Type Provider 09/01/2021 Office visit Crispin Shi APR N 08/04/2021 Office visit Crispin Shi APR N 08/04/[address] WORKER 07/07/2021 Office visit 07/07/2021 Office visit Geovanny Valencia 06/05/2021 Office visit Crispin Shi APR N 04/26/2021 Office visit Oanh SARAVIA RN 03/17/2021 Office visit Crispin Shi APR N 03/12/2021 Office visit Crispin Shi APR N 02/26/2021 Hospital Osbaldo Souza MD 02/26/[address] 01/21/2021 Office visit Crispin Shi APR N 01/05/2021 Office visit Coretta LongBarbara King APR N 12/23/2020 Office visit Crispin Shi APR N 11/14/[address] Sundeep Mendenhall MD 11/11/2020 Office visit 11/11/2020 Office visit Crispin Shi APR N 10/07/2020 Office visit Crispin Shi APR N 08/25/2020 Office visit Oanh SARAVIA RN 08/05/2020 Office visit Crispin Shi APR N 05/07/2020 Office visit Crispin Shi APR N 04/10/2020 Office visit Crispin Shi APR N 03/18/2020 Office visit Crispin Shi APR N 01/22/2020 Office visit Geovanny Valencia 01/08/2020 Office visit Geovanny Valencia 01/08/2020 [facility] Osbaldo Souza MD 12/25/2019 Office visit Geovanny Valencia 11/27/2019 Office visit Geovanny Valencia 10/30/2019 Office visit Geovanny Valencia 10/02/2019 Office visit Geovanny Valencia 09/21/2019 Office visit Geovanny Valencia 08/28/[address] Savanah valencia MD 08/15/2019 Office visit Leela naqvi COURT WORKER 07/06/2019 Office visit Crispin Shi APR N 06/13/2019 Office visit Crispin Shi APR N 08/21/2018 Office visit Mee SARAVIA RN 08/04/2018 Office visit Crispin Shi APR N 07/04/2018 Office visit Crispin Shi APR N 01/27/2016 Office visit Leela Solorio n COURT WORKER 12/06/2015 Office visit Crispin Shi APR N 11/14/2015 Office visit Crispin Shi APR N 10/30/2015 Office visit Crispin Shi APR N 10/25/2015 Office visit Crispin Shi APR N 09/04/2015 Office visit Ciarra almazan MD 08/20/2015 Office visit Leela Solorio n COURT WORKER 08/06/2015 Office visit Crispin Lermaran APR N 08/05/2015 Office visit 08/05/2015 Office visit Leela Solorio n COURT WORKER 06/28/2015 Office visit Crispin Shi APR N 01/10/2015 Office visit Shaq Sena MD 01/07/2015 Office visit 01/07/2015 Office visit Leelajoshua Benzana maria n COURT WORKER 12/03/2014 Office visit Shaq Sena MD 11/20/2014 Hospital Shaq Sena MD 11/14/2014 [facility] Shaq Sena MD 11/12/2014 Voided Shaq Sena MD 11/12/2014 [facility] Shaq Sena MD 11/12/2014 Office visit Shaq Sena MD 11/07/2014 [facility] Osbaldo Souza MD 11/05/2014 Office visit Herrera Lewis MD 10/29/2014 Office visit Shaq Sena MD 10/29/2014 [facility] Shaq Sena MD 10/22/2014 Office visit Shaq Sena MD 10/09/2014 Office visit Shaq Sena MD 10/06/2014 [facility] Herrera Lewis MD 10/01/2014 Office visit Shaq Sena MD 09/20/2014 Office visit Yamilet Perez MD 09/17/2014 Office visit Leela Solorio n COURT WORKER 09/03/2014 Office visit Shaq Sena MD 08/22/2014 Office visit Shaq Sena MD 08/07/2014 [facility] Shaq Sena MD 07/30/2014 Office visit Shaq Sena MD 07/30/2014 Voided Leela naqvi APRN 07/17/2014 Office visit Shaq Sena MD 06/29/2014 [facility] Yamilet Perez MD
--- OUTSIDE RECORDS SUMMARY | 2021-09-11 18:24 | XMS REPORT | Encounter Summary ---
Author Author [facility] Organization [facility] Address Unknown Phone Unavailable Care Team Providers Care Inspector Open Die Name Role Phone No Pcp, Na PCP Unavailable Reason for Visit * Reason Comments Abdominal pain right side abdominal pain x couple of days; associated nausea and diarrhea Chest Pain during triage process state s now starting to have chest discomfort Encounter Details Care Team Description Date Type Department 08/07/2021 Emergency Emergency Departmen t: [facility], [address] [place] [address] Social History Date Tobacco Use Types Packs/Day Years Used Never Smoker Smokeless Tobacco: Never Used Comments Alcohol Use Standard Drinks/Week Not Currently 0 (1 standard drink = 0.6 o z pure alcohol) Sex Assigned at Date Recorded Not on file Date Recorded COVID-19 Exposure Response 08/07/2021 3:46 PM MANAGER PHOTO In the last month, have you been in contact with No / Unsure someone who was confirmed or suspected to have Coronavirus / COVID-19? documented as of this encounter Last Filed Vital Signs Reading Time Taken Comments Vital Sign 152/94 08/07/2021 3:47 PM MANAGER PHOTO Blood Pressure - - Pulse 36.8 C (98.2 F) 08/07/2021 3:47 PM MANAGER PHOTO Temperature - - Respiratory Rate 100% 08/07/2021 3:47 PM MANAGER PHOTO Oxygen Saturation - - Inhaled Oxygen Concentration 124.3 kg (274 lb) 08/07/2021 3:47 PM MANAGER PHOTO Weight 175.3 cm (5' 9") 08/07/2021 3:47 PM MANAGER PHOTO Height 40.46 08/07/2021 3:47 PM MANAGER PHOTO Body Mass Index documented in this encounter Functional Status Date of Assessment Functional Status Response 09/26/2019 Does the patient have a hearing impairment: No documented as of this encounter Medications at Time of Discharge Start Date End Date Medication Sig Dispensed Refills diphenhydrAMINE (BENADRYL Take 25 mg by 0 ALLERGY) 25 mg tablet mouth at bedtime daily. 09/26/2019 ondansetron (ZOFRAN) 4 mg Take one 30 tablet 0 tablet tablet by mouth every 6 hours as needed. Take 1 0 [id number]-vsrz-[id number]-omeg3s 28 capsule by mg iron- 800 mcg-235 mg mouth daily. cap documented as of this encounter Discharge Disposition Code Departure Means Destination Disposition Left without being seen documented in this encounter ED Notes * Gustavo Mike, RN - 08/07/2021 7:50 PM MANAGER PHOTO 35 yo F presents to ED53 from triage c/o RUQ abdominal pain, nausea without vomi ting, and generalized itching x 3 days. PMH porphyria, pt concerned this could b e a recurrence of porphyria. Pt denies recent ill contacts, has not received COV ID vaccine. Pt is AOx4, breathing is non-labored on RA, skin is p/w/d. Pt restin g on cart in NAD while awaiting evaluation by provider. GER PHOTO documented in this encounter Plan of Treatment Not on filedocumented as of this encounter Procedures Comments Procedure Name Priority Date/Time Associated Diag nosis ECG-SCAN 08/07/2021 12:00 AM MANAGER PHOTO ECG-SCAN 08/07/2021 12:00 AM MANAGER PHOTO documented in this encounter Results * ECG-SCAN (08/07/2021 12:00 AM MANAGER PHOTO) Narrative 08/07/2021 12:00 AM MANAGER PHOTO Ordered by an unspecified provider. * ECG-SCAN (08/07/2021 12:00 AM MANAGER PHOTO) Narrative 08/07/2021 12:00 AM MANAGER PHOTO Ordered by an unspecified provider. documented in this encounter Visit Diagnoses Not on filedocumented in this encounter Care Teams Start Date End Date Inspector Open Die Relationship Specialty 09/21/19 No Pcp, Na PCP - General documented as of this encounter
--- OUTSIDE RECORDS SUMMARY | 2021-09-11 18:25 | XMS REPORT ---
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 11/14/2020 12:00 AM Urine porphobilinogen detection 08/04/2021 12:00 AM Urine porphobilinogen measurement 08/04/2021 12:00 A M Urine creatinine measurement 08/04/2021 12:00 AM Ammonia measurement 08/04/2021 12:00 AM Medications Active Name Start Date Estimated Completion Date SIG Co mments One Touch Verio glucometer 01/08/2020 Use as directe d to test glucose QID Breo Ellipta 100 mcg-25 mcg/dose powder for inhalation 02/19/2021 inhale 1 puff by inhalation route once daily at the same time each day Vyvanse 30 mg oral capsule 07/16/2021 09/14/2021 take 1 capsule (30 mg) by oral [...] morning and evening meals for 30 days Augmentin 875 mg-125 mg tablet 03/12/2021 03/19/2021 [...] 2 times per day for 7 days Discontinued Name Start Date [...] HC BMI BSA BMI Percentile O2 Sat(%) 08/04/2021 2:42:00 PM 130 mm[Hg] 80 mm[Hg] [...] 12:00 AM Phenergan, Up to 50 Mg [facility]#3088-7542-72 Reviewed 11/24/2015 12:00 AM THER/PROPH/DIAG INJ SC/IM [...] 07/28/2021 12:00 AM US EXAM PELVIC COMPLETE Returned 07/28/2021 12:00 AM TRANSVAGINAL US NON-OB Returned 08/04/2021 12:00 AM IMMUNIZATION ADMIN Reviewed 08/04/2021 12:00 AM FLU VAC NO PRSV 4 MARGIE 6-35 M Reviewed 07/31/2014 12:00 AM OB US LIMITED FETUS(S) [...] 7.8 TSH W/REFLEX 0.72 Estradiol 45.80 pg/mL History Of Immunizations Name Date Admin Mfg Name Mfg Code Trade Name Lot# Route Inj Vis Given Vis Pub CVX Influenza 08/04/2021 GlaxoSmithKline SKB Flulaval quadrivalent [id number] [id number] Intramuscular Left [...] BMI 40.0-44.9, adult May 07 2020 3:17PM COVID-19 Aug 05 2020 11:59AM Headache Aug 05 2020 [...] 2021 2:44PM Nausea Aug 04 2021 2:44PM Payers Insurance Name Company Name Plan Name Plan Number Policy Number John cy Group Number Start Date Occ Med Occupational Medicine [id number] [facility] Plan of [id number] N/[facility] - Community Plan [facility] ealthCare RHC Comm [id number] N/A BCBS [id number] [facility] History of Encounters Visit Date Visit Type Provider 08/04/2021 Office visit Crispin Shi APR N 08/04/2021 Office visit Lety Flynn GLOBAL MANAGER 07/07/2021 Office visit 07/07/2021 Office visit Geovanny Valencia 06/05/2021 Office visit Crispin Shi APR N 04/26/2021 Office visit Oanh SARAVIA RN 03/17/2021 Office visit Crispin Shi APR N 03/12/2021 Office visit Crispin Shi APR N 02/26/2021 [facility] Osbaldo Souza MD 02/26/2021 Voided Lety Flynn GLOBAL MANAGER 01/21/2021 Office visit Crispin Shi APR N [...] Shi APR N 01/22/2020 Office visit Geovanny Goods M D 01/08/2020 Office visit Geovanny Goods M D 01/08/2020 Hospital Osbaldo Souza MD 12/25/2019 Office visit Geovanny Jiménezbrenrriques M D 11/27/2019 Office visit Geovanny Goods M D 10/30/2019 Office visit Geovanny Goods M D 10/02/2019 Office visit Geovanny Goods M D 09/21/2019 Office visit Geovanny Goods M D 08/28/[address] Savanah valencia MD 08/15/2019 Office visit Leela Solorio n GLOBAL MANAGER 07/06/2019 Office visit Crispin Shi APR N 06/13/2019 Office visit Crispin Shi APR N 08/21/2018 Office visit Mee SARAVIA RN 08/04/2018 Office visit Crispin Shi APR N 07/04/2018 Office visit Crispin Shi APR N 01/27/2016 Office visit Leela Solorio n GLOBAL MANAGER 12/06/2015 Office visit Crispin Shi APR N 11/14/2015 Office visit Crispin Shi APR N 10/30/2015 Office visit Crispin Shi APR N 10/25/2015 Office visit Crispin Shi APR N 09/04/2015 Office visit Ciarra almazan MD 08/20/2015 Office visit Leela Solorio n GLOBAL MANAGER 08/06/2015 Office visit Crispin Lermaran APR N 08/05/2015 Office visit 08/05/2015 Office visit Leela Solorio n GLOBAL MANAGER 06/28/2015 Office visit Crispin Shi APR N 01/10/2015 Office visit Shaq Sena MD 01/07/2015 Office visit 01/07/2015 Office visit Leela Solorio n GLOBAL MANAGER 12/03/2014 Office visit Shaq Sena MD 11/20/2014 [facility] Shaq Sena MD 11/14/2014 [facility] Shaq Sena MD 11/12/2014 Voided Shaq Sena MD 11/12/2014 [facility] Shaq Sena MD 11/12/2014 Office visit Shaq Sena MD 11/07/2014 [facility] Osbaldo Souza MD 11/05/2014 Office visit Herrera Lewis MD 10/29/2014 Office visit Shaq Sena MD 10/29/2014 [facility] Shaq Sena MD 10/22/2014 Office visit Shaq Sena MD 10/09/2014 Office visit Shaq Sena MD 10/06/2014 [facility] Herrera Lewis MD 10/01/2014 Office visit Shaq Sena MD 09/20/2014 Office visit Yamilet Perez MD 09/17/2014 Office visit Leela naqvi GLOBAL MANAGER 09/03/2014 Office visit Shaq Sena MD 08/22/2014 Office visit Shaq Sena MD 08/07/2014 [facility] Shaq Sena MD 07/30/2014 Office visit Shaq Sena MD 07/30/2014 Voided Leela naqvi GLOBAL MANAGER 07/17/2014 Office visit Shaq Sena MD 06/29/2014 [facility] Yamilet Perez MD
--- OUTSIDE RECORDS SUMMARY | 2021-09-11 18:25 | XMS REPORT ---
Author Author Sierra Shi [facility] oup Address [address] [place], [place] [address] Care Team Providers Care Tool Maintenance Technician Name Role Phone Crispin Shi PCP Crispin [...] each day Vyvanse 30 mg oral capsule 08/12/2021 10/11/2021 [...] 12:00 AM Phenergan, Up to 50 Mg [facility]#[id number] Reviewed 11/24/2015 12:00 AM THER/PROPH/DIAG INJ SC/IM [...] INSERT INTRAUTERINE DEVICE Reviewed 01/10/2015 12:00 AM Kamranard T380A -INTRAUTERINE COPPER CON TRACEPTIVE Reviewed Results [...] Vis Given Vis Pub CVX Influenza 08/04/2021 GlaxWandoujia SKB Flulaval quadrivalent K [id number] Intramuscular Left [...] 2021 10:14AM Porphyria Aug 28 2021 10:14AM Payers Insurance Name Company Name Plan Name Plan Number Policy Number John cy Group Number Start Date [facility] - [facility] ealtare [facility] Comm [id number] N/A [facility] [id number] 2015 [facility] Med Occupational Medicine [id number] [facility] [id number] N/A History of Encounters Visit Date Visit Type Provider 09/01/2021 Office visit Crispin Shi APR N 08/04/2021 Office visit Crispin Shi APR N 08/04/2021 Office visit Lety Flynn APRN 07/07/2021 Office visit 07/07/2021 Office visit Geovanny Valencia 06/05/2021 Office visit Crispin Shi APR N 04/26/2021 Office visit Oanh SARAVIA RN 03/17/2021 Office visit Crispin Shi APR N 03/12/2021 Office visit Crispin Lermaran APR N 02/26/2021 Hospital Osbaldo Souza MD 02/26/2021 Voided Lety Flynn PRINT SHOP HELPER 01/21/2021 Office visit Crispin Shi APR N 01/05/2021 Office visit Coretta Magan King APR N 12/23/2020 Office visit Crispin Lermaran APR N 11/14/[address] Sundeep Mendenhall MD 11/11/2020 Office visit 11/11/2020 Office visit Crispin Shi APR N 10/07/2020 Office visit Crispin Lermaran APR N 08/25/2020 Office visit Oanh SARAVIA RN 08/05/2020 Office visit Crispin Lermaran APR N 05/07/2020 Office visit Crispin Lermaran APR N 04/10/2020 Office visit Crispin Lermaran APR N 03/18/2020 Office visit Crispin Lermaran APR N 01/22/2020 Office visit Geovanny Valencia 01/08/2020 Office visit Geovanny Valencia 01/08/2020 Hospital Osbaldo Souza MD 12/25/2019 Office visit Geovanny Valencia 11/27/2019 Office visit Geovanny Valencia 10/30/2019 Office visit Geovanny Valencia 10/02/2019 Office visit Geovanny Valencia 09/21/2019 Office visit Geovanny Valencia 08/28/[address] Savanah valencia MD 08/15/2019 Office visit Leela naqvi PRINT SHOP HELPER 07/06/2019 Office visit Crispin Shi APR N 06/13/2019 Office visit Crispin Lermaran APR N 08/21/2018 Office visit Mee SARAVIA RN 08/04/2018 Office visit Crispin Lermaran APR N 07/04/2018 Office visit Crispin Shi APR N 01/27/2016 Office visit Leela Solorio n PRINT SHOP HELPER 12/06/2015 Office visit Crispin Lermaran APR N 11/14/2015 Office visit Crispin Lermaran APR N 10/30/2015 Office visit Crispin Shi APR N 10/25/2015 Office visit Crispin Shi APR N 09/04/2015 Office visit Ciarra almazan MD 08/20/2015 Office visit Leela Solorio n PRINT SHOP HELPER 08/06/2015 Office visit Crispin Lermaran APR N 08/05/2015 Office visit 08/05/2015 Office visit Leela Solorio n PRINT SHOP HELPER 06/28/2015 Office visit Crispin Lermaran APR N 01/10/2015 Office visit Shaq Sena MD 01/07/2015 Office visit 01/07/2015 Office visit Leelajoshua Solorio n PRINT SHOP HELPER 12/03/2014 Office visit Shaq Sena MD 11/20/2014 [facility] Shaq Sena MD 11/14/2014 [facility] Shaq Sena MD 11/12/2014 Voided Shaq Sena MD 11/12/2014 [facility] Shaq Sena MD 11/12/2014 Office visit Shaq Sena MD 11/07/2014 [facility] Osbaldo Souza MD 11/05/2014 Office visit Herrera Lewis MD 10/29/2014 Office visit Shaq Sena MD 10/29/2014 [facility] Shaq Sena MD 10/22/2014 Office visit Shaq Sena MD 10/09/2014 Office visit Shaq Sena MD 10/06/2014 [facility] Herrera Lewis MD 10/01/2014 Office visit Shaq Sena MD 09/20/2014 Office visit Yamilet Perez MD 09/17/2014 Office visit Leela Solorio n PRINT SHOP HELPER 09/03/2014 Office visit Sahq Sena MD 08/22/2014 Office visit Shaq Sena MD 08/07/2014 [facility] Shaq Sena MD 07/30/2014 Office visit Shaq Sena MD 07/30/2014 Voided Leela Solorio n PRINT SHOP HELPER 07/17/2014 Office visit Shaq Sena MD 06/29/2014 [facility] Yamilet Perez MD
--- OUTSIDE RECORDS SUMMARY | 2021-09-11 18:25 | XMS REPORT ---
Author Author Sierra Flynn 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 11/14/2020 12:00 AM Flu Vaccine 6 to 35 month, Quadrivalent, Preservative-free (single-dose syringe) 08/04/2021 12:00 AM Medications Active Name Start [...] 11/14 ADHD Active 06/05/2021 Anxiety Active 06/05/2021 Vital Signs Date Time BP-Sys(mm[Hg] BP-Johanna(mm[Hg]) HR(bpm) RR(rpm) Temp WT HT HC BMI BSA BMI Percentile O2 Sat(%) 08/04/2021 9:12:00 AM 116 mm[Hg] 78 mm[Hg] 108 {beats}/min 20 rpm 97.9 F 274.5 lbs 69 in 40.5361 kg/m2 2.462 m2 97 % 07/07/2021 2:55:00 PM 152 mm[Hg] 89 mm[Hg] 94 {beats}/min 99.1 F 27 4 lbs 69 in 40.46 kg/m2 2.46 m2 03/12/2021 1:33:00 PM 134 mm[Hg] 86 mm[Hg] 109 {beats}/min 20 rpm 99 F 269 lbs 69 in 39.7239 kg/m2 2.4372 m2 97 % 01/21/2021 10:20:00 AM 132 mm[Hg] 86 mm[Hg] 78 {beats}/min 18 rpm 98.2 F 270 lbs 69 in 39.87 kg/m2 2.44 m2 98 % 12/23/2020 1:07:00 PM 122 mm[Hg] 78 mm[Hg] 105 {beats}/min 18 rpm 99 F 265 lbs 69 in 39.1333 kg/m2 2.4191 m2 97 % 11/14/2020 1:23:00 PM 128 mm[Hg] 72 mm[Hg] 68 {beats}/min 20 rpm 97.8 F 265 lbs 69 in 39.13 kg/m2 2.42 m2 97 % 11/11/2020 3:20:00 PM 132 mm[Hg] 82 mm[Hg] 100 {beats}/min 20 rpm 99 F 273 lbs 69 in 40.3146 kg/m2 2.4553 m2 98 % 10/07/2020 1:12:00 PM 142 mm[Hg] 82 mm[Hg] 93 {beats}/min 20 rpm 99.1 F 271 lbs 69 in 40.02 kg/m2 2.45 m2 99 % 05/07/2020 3:14:00 PM 140 mm[Hg] 80 mm[Hg] 87 {beats}/min 19 rpm 98.6 F 281 lbs 69 in 41.496 kg/m2 2.491 m2 97 % 04/10/2020 3:01:00 PM 120 mm[Hg] 80 mm[Hg] 111 {beats}/min 16 rpm 97.9 F 275 lbs 69 in 40.61 kg/m2 2.46 m2 99 % 03/18/2020 11:37:00 AM 125 mm[Hg] 80 mm[Hg] 105 {beats}/min 16 rpm 97.9 F 269 lbs 69 in 39.7239 kg/m2 2.4372 m2 99 % 08/28/2019 4:04:00 PM 133 mm[Hg] 86 mm[Hg] 103 {beats}/min 16 rpm 98.82 7 F 272.375 lbs 69 in 40.22 kg/m2 2.45 m2 99 % 08/15/2019 4:07:00 PM 127 mm[Hg] 87 mm[Hg] 83 {beats}/min 98.6 F 273 lbs 69 in 40.3146 kg/m2 2.4553 m2 07/06/2019 3:36:00 PM 118 mm[Hg] 78 mm[Hg] 88 {beats}/min 18 rpm 98.3 F 273.125 lbs 69 in 40.33 kg/m2 2.46 m2 97 % 06/13/2019 4:05:00 PM 120 mm[Hg] 80 mm[Hg] 93 {beats}/min 16 rpm 98.1 F 278 lbs 69 in 41.053 kg/m2 2.4777 m2 98 % 08/21/2018 2:39:00 PM 132 mm[Hg] 83 mm[Hg] 76 {beats}/min 18 rpm 98.6 F 246.375 lbs 69 in 36.38 kg/m2 2.33 m2 100 % 08/04/2018 2:33:00 PM 120 mm[Hg] 70 mm[Hg] 92 {beats}/min 16 rpm 96.7 F 240 lbs 69 in 35.4414 kg/m2 2.3021 m2 98 % 07/04/2018 2:17:00 PM 130 mm[Hg] 80 mm[Hg] 80 {beats}/min 18 rpm 98.4 F 244 lbs 69 in 36.03 kg/m2 2.32 m2 100 % 01/27/2016 4:04:00 PM 135 mm[Hg] 73 mm[Hg] 75 {beats}/min 98.8 F 21 8 lbs 64 in 37.4192 kg/m2 2.1131 m2 12/06/2015 3:42:00 PM 120 mm[Hg] 80 mm[Hg] 74 {beats}/min 16 rpm 96.8 F 224 lbs 69 in 33.08 kg/m2 2.22 m2 98 % 11/14/2015 7:10:00 PM 134 mm[Hg] 76 mm[Hg] 85 {beats}/min 18 rpm 97.8 F 232.125 lbs 69 in 34.2785 kg/m2 2.264 m2 98 % 10/30/2015 5:36:00 PM 126 mm[Hg] 66 mm[Hg] 102 {beats}/min 18 rpm 97.8 F 230.375 lbs 69 in 34.02 kg/m2 2.26 m2 98 % 10/25/2015 3:29:00 PM 128 mm[Hg] 80 mm[Hg] 84 {beats}/min 16 rpm 97.8 F 231 lbs 69 in 34.1124 kg/m2 2.2586 m2 99 % 09/04/2015 5:28:00 PM 132 mm[Hg] 68 mm[Hg] 93 {beats}/min 18 rpm 98.6 F 234.375 lbs 69 in 34.61 kg/m2 2.27 m2 98 % 08/20/2015 3:55:00 PM 136 mm[Hg] 77 mm[Hg] 85 {beats}/min 98.8 F 232 lbs 69 in 34.2601 kg/m2 2.2634 m2 08/06/2015 3:42:00 PM 130 mm[Hg] 80 mm[Hg] 86 {beats}/min 16 rpm 97.8 F 231 lbs 69 in 34.11 kg/m2 2.26 m2 99 % 08/05/2015 4:10:00 PM 131 mm[Hg] 85 mm[Hg] 85 {beats}/min 98.2 F 232 lbs 69 in 34.2601 kg/m2 2.2634 m2 06/28/2015 3:20:00 PM 120 mm[Hg] 80 mm[Hg] 97 {beats}/min 16 rpm 97.6 F 248 lbs 69 in 36.62 kg/m2 2.34 m2 98 % 01/10/2015 3:31:00 PM 115 mm[Hg] 72 mm[Hg] 71 {beats}/min 97.2 F 233 lbs 69 in 34.4077 kg/m2 2.2683 m2 01/07/2015 3:57:00 PM 119 mm[Hg] 75 mm[Hg] 65 {beats}/min 97.7 F 238 lbs 69 in 35.15 kg/m2 2.29 m2 12/03/2014 10:45:00 AM 143 mm[Hg] 86 mm[Hg] 74 {beats}/min 98 F 2 33 lbs 69 in 34.4077 kg/m2 2.2683 m2 07/17/2014 11:48:00 AM 116 mm[Hg] 66 mm[Hg] 80 {beats}/min 97.5 F 242 lbs 69.25 in 35.4792 kg/m2 2.32 m2 Social History Name Description Comments Alcohol [...] 12:00 AM Phenergan, Up to 50 Mg [facility]#7349-9687-88 Reviewed 11/24/2015 12:00 AM THER/PROPH/DIAG INJ SC/IM [...] Returned 08/04/2021 12:00 AM IMMUNIZATION ADMIN Reviewed 07/31/2014 12:00 AM OB US LIMITED [...] 0.72 Estradiol 45.80 pg/mL History Of Immunizations Not available. History of Past Illness Name Date of Onset Comments Diabetes, Gestational Asthma Porphyruria Right upper quadrant abdominal pain 11/14/2020 Insulin resistance ADHD 06/05/2021 Anxiety 06/05/2021 Low lying placenta Jul 17 2014 12:01PM [...] health examination Aug 04 2021 9 :15AM Payers Insurance Name Company Name Plan Name Plan Number Policy Number John cy Group Number Start Date Occ Med Occupational Medicine [id number] N/A [facility] Plan of [id number] N/A [facility] - [facility] - Community Plan [facility] [id number] N/A [id number] March 05, 2015 History of Encounters Visit Date Visit Type Provider 08/04/2021 Office visit Lety Flynn ZOO DIRECTOR 07/07/2021 Office visit 07/07/2021 Office visit Geovanny Valencia 06/05/2021 Office visit Crispin Shi APR N 04/26/2021 Office visit Oanh SARAVIA RN 03/17/2021 Office visit Crispin Shi APR N 03/12/2021 Office visit Crispin Lermaran APR N 02/26/2021 Hospital Osbaldo Souza MD 02/26/2021 Voided Lety Flynn ZOO DIRECTOR 01/21/2021 Office visit Crispin Shi APR N 01/05/2021 Office visit Coretta Everettong APR N 12/23/2020 Office visit Crispin Shi [...] valencia MD 08/15/2019 Office visit Leela naqvi ZOO DIRECTOR 07/06/2019 Office visit Crispin Shi APR N 06/13/2019 Office visit Crispin Shi APR N 08/21/2018 Office visit Mee SARAVIA RN 08/04/2018 Office visit Crispin Shi APR N 07/04/2018 Office visit Crispin Shi APR N 01/27/2016 Office visit Leela Solorio n ZOO DIRECTOR 12/06/2015 Office visit Crispin Shi APR N 11/14/2015 Office visit Crispin Shi APR N 10/30/2015 Office visit Crispin Shi APR N 10/25/2015 Office visit Crispin Lermaran APR N 09/04/2015 Office visit Ciarra almazan MD 08/20/2015 Office visit Leela Solorio n ZOO DIRECTOR 08/06/2015 Office visit Crispin Lermaran APR N 08/05/2015 Office visit 08/05/2015 Office visit Leela Solorio n ZOO DIRECTOR 06/28/2015 Office visit Crispin Shi APR N 01/10/2015 Office visit Shaq Sena MD 01/07/2015 Office visit 01/07/2015 Office visit Leela De La Torrealicja n ZOO DIRECTOR 12/03/2014 Office visit Shaq Sena MD 11/20/2014 [facility] Shaq Sena MD 11/14/2014 [facility] Shaq Sena MD 11/12/2014 Voided Shaq Sena MD 11/12/2014 [facility] Shaq Sena MD 11/12/2014 Office visit Shaq Sena MD 11/07/2014 [facility] Osbaldo Souza MD 11/05/2014 Office visit Herrera Lewis MD 10/29/2014 Office visit Shaq Sena MD 10/29/2014 [facility] Shaq Sena MD 10/22/2014 Office visit Shaq Sena MD 10/09/2014 Office visit Shaq Sena MD 10/06/2014 [facility] Herrera Lewis MD 10/01/2014 Office visit Shaq Sena MD 09/20/2014 Office visit Yamilet Perez MD 09/17/2014 Office visit Leela Solorio n ZOO DIRECTOR 09/03/2014 Office visit Shaq Sena MD 08/22/2014 Office visit Shaq Sena MD 08/07/2014 [facility] Shaq Sena MD 07/30/2014 Office visit Shaq Sena MD 07/30/2014 Voided Leela naqvi ZOO DIRECTOR 07/17/2014 Office visit Shaq Sena MD 06/29/2014 [facility] Yamilet Perez MD
--- OUTSIDE RECORDS SUMMARY | 2021-09-11 18:25 | XMS REPORT ---
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 11/14/2020 12:00 AM AMMONIA. 08/28/2021 12:00 AM HEPATIC FUNCTION PANEL 08/28/2021 12:00 AM Medications Active Name Start Date [...] 12:00 AM Phenergan, Up to 50 Mg [facility]#4402-7265-13 Reviewed 11/24/2015 12:00 AM THER/PROPH/DIAG INJ SC/IM [...] 08/04/2021 12:00 AM ASSAY OF AMMONIA Reviewed 07/31/2014 12:00 AM OB US LIMITED [...] HGB 12.90 g /dLHCT 38.50 %MCV 82.0 fLH 27.50 pgMCHC 33.50 g/dLRDW SD 41 RDW [...] Vis Given Vis Pub CVX Influenza 08/04/2021 BeSmartine SKB Flulaval quadrivalent K 45Z2 Intramuscular Left [...] Number John cy Group Number Start Date [facility] Med Occupational Medicine [id number] N/A [facility] Plan [facility] Comm Plan of [id number] N/A [facility] - [facility] ealtFormerly [facility] Comm [id number] N/A [facility] [id number] [facility] History of Encounters Visit Date Visit Type Provider 08/04/2021 Office visit Crispin Shi APR N 08/04/2021 Office visit Lety Flynn SEARCH COORDINATOR 07/07/2021 Office visit 07/07/2021 Office visit Geovanny Valencia 06/05/2021 Office visit Crispin Shi APR N 04/26/2021 Office visit Oanh SARAVIA RN 03/17/2021 Office visit Crispin Shi APR N 03/12/2021 Office visit Crispin Shi APR N 02/26/2021 Nilo Souza MD 02/26/2021 Voided Lety Gee SEARCH COORDINATOR 01/21/2021 Office visit Crispin Shi APR N [...] Valencia 01/08/2020 Office visit Geovanny Valencia 01/08/2020 [facility] Osbaldo Souza MD 12/25/2019 Office visit Geovanny Valencia 11/27/2019 Office visit Geovanny Valencia 10/30/2019 Office visit Geovanny Valencia 10/02/2019 Office visit Geovanny Barba D 09/21/2019 Office visit Geovanny Valencia 08/28/[address] Savanah valencia MD 08/15/2019 Office visit Leela naqvi SEARCH COORDINATOR 07/06/2019 Office visit Crispin Shi APR N 06/13/2019 Office visit Crispin Shi APR N 08/21/2018 Office visit Mee SARAVIA RN 08/04/2018 Office visit Crispin Shi APR N 07/04/2018 Office visit Crispin Shi APR N 01/27/2016 Office visit Leela naqvi SEARCH COORDINATOR 12/06/2015 Office visit Crispin Shi APR N 11/14/2015 Office visit Crispin Lermaran APR N 10/30/2015 Office visit Crispin Shi APR N 10/25/2015 Office visit Crispin Shi APR N 09/04/2015 Office visit Ciarra almazan MD 08/20/2015 Office visit Leela Solorio n SEARCH COORDINATOR 08/06/2015 Office visit Crispin Shi APR N 08/05/2015 Office visit 08/05/2015 Office visit Leela JamesonBarbara Solorio n SEARCH COORDINATOR 06/28/2015 Office visit Crispin Shi APR N 01/10/2015 Office visit Shaq Sena MD 01/07/2015 Office visit 01/07/2015 Office visit Leela Solorio n SEARCH COORDINATOR 12/03/2014 Office visit Shaq Sena MD 11/20/2014 Hospital Shaq Sena MD 11/14/2014 [facility] Shaq Sena MD 11/12/2014 Voided Shaq Sena MD 11/12/2014 [facility] Shaq Sena MD 11/12/2014 Office visit Shaq Sena MD 11/07/2014 [facility] Osbaldo Souza MD 11/05/2014 Office visit Herrera Lewis MD 10/29/2014 Office visit Shaq Sena MD 10/29/2014 [facility] Shaq Sena MD 10/22/2014 Office visit Shaq Sena MD 10/09/2014 Office visit Shaq Sena MD 10/06/2014 [facility] Herrera Lewis MD 10/01/2014 Office visit Shqa Sena MD 09/20/2014 Office visit Yamilet Perez MD 09/17/2014 Office visit Leela Solorio n SEARCH COORDINATOR 09/03/2014 Office visit Shaq Sena MD 08/22/2014 Office visit Shaq Sena MD 08/07/2014 [facility] Shaq Sena MD 07/30/2014 Office visit Shaq Sena MD 07/30/2014 Voided Leela Solorio n SEARCH COORDINATOR 07/17/2014 Office visit Shaq Sena MD 06/29/2014 [facility] Yamilet Perez MD
--- OUTSIDE RECORDS SUMMARY | 2021-09-11 18:26 | XMS REPORT ---
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 11/14/2020 12:00 AM Transabdominal / Transvaginal US (non-OB) 07/28/2021 12:00 AM Transabdominal / Transvaginal US (non-OB) 07/28/2021 12:00 AM Medications Active Name Start Date Estimated Completion Date SIG Co mments One Touch Verio glucometer 01/08/2020 Use as directe d to test glucose QID Breo Ellipta 100 mcg-25 mcg/dose powder for inhalation 02/19/2021 inhale 1 puff by inhalation route once daily at the same time each day metronidazole 500 mg oral tablet 07/16/2021 07/23/2021 take 1 tablet (500 mg) by oral route 2 times per day for 7 days Vyvanse 30 mg oral capsule 07/16/2021 09/14/2021 [...] 6 hours as needed for 7 days Discontinued Name Start Date [...] HC BMI BSA BMI Percentile O2 Sat(%) 07/07/2021 2:55:00 PM 152 mm[Hg] 89 mm[Hg] [...] AM Phenergan, Up to 50 Mg [facility]#[id number] Reviewed 11/24/2015 12:00 AM THER/PROPH/DIAG INJ SC/IM [...] Reviewed 07/07/2021 12:00 AM ASSAY OF ESTRADIOL Returned 07/07/2021 12:00 AM ASSAY THYROID STIM HORMONE Reviewed 07/07/2021 12:00 AM TRICHOMONAS ASSAY W/OPTIC Reviewed 07/07/2021 12:00 AM SPECIMEN HANDLING OFFICE-LAB Reviewed 07/31/2014 12:00 AM OB US LIMITED [...] mL/min/1.73mPROLACTIN 19.2 FSH 7.8 TSH W/REFLEX 0.72 History Of Immunizations Not available. History of [...] Abnormal uterine bleeding Jul 08 2021 9:45AM Payers Insurance Name Company Name Plan Name Plan Number Policy Number John cy Group Number Start Date [facility] [id number] N/A BCBS [facility] [id number] [facility] Plan of [id number] N/A History of Encounters Visit Date Visit Type Provider 07/07/2021 Office visit 07/07/2021 Office visit Geovanny Valencia 06/05/2021 Office visit Crispin Shi APR N 04/26/2021 Office visit Oanh SARAVIA RN 03/17/2021 Office visit Crispin Shi APR N 03/12/2021 Office visit Crispin Shi APR N 02/26/2021 Nilo Souza MD 02/26/2021 Voided Lety Flynn PLANT CUSTODIAN 01/21/2021 Office visit Crispin Shi APR N [...] Valencia 01/08/2020 Office visit Geovanny Valencia 01/08/2020 Nilo Souza MD 12/25/2019 Office visit Geovannydriss Goods M D 11/27/2019 Office visit Geovanny Valencia 10/30/2019 Office visit Geovanny Goods M D 10/02/2019 Office visit Geovannydriss Jiménezbrenrriques M D 09/21/2019 Office visit Geovanny Goods M D 08/28/[address] Savanah valencia MD 08/15/2019 Office visit Leela Solorio n PLANT CUSTODIAN 07/06/2019 Office visit Crispin Shi APR N 06/13/2019 Office visit Crispin Shi APR N 08/21/2018 Office visit Mee SARAVIA RN 08/04/2018 Office visit Crispin Shi APR N 07/04/2018 Office visit Crispin Shi APR N 01/27/2016 Office visit Leela Solorio n PLANT CUSTODIAN 12/06/2015 Office visit Crispin Shi APR N 11/14/2015 Office visit Crispin Shi APR N 10/30/2015 Office visit Crispin Shi APR N 10/25/2015 Office visit Crispin Shi APR N 09/04/2015 Office visit Ciarra almazan MD 08/20/2015 Office visit Leela Solorio n PLANT CUSTODIAN 08/06/2015 Office visit Crispin Shi APR N 08/05/2015 Office visit 08/05/2015 Office visit Leela Solorio n PLANT CUSTODIAN 06/28/2015 Office visit Crispin Shi APR N 01/10/2015 Office visit Shaq Sena MD 01/07/2015 Office visit 01/07/2015 Office visit Leela naqvi PLANT CUSTODIAN 12/03/2014 Office visit Shaq Sena MD 11/20/2014 Hospital Shaq Sena MD 11/14/2014 [facility] Shaq Sena MD 11/12/2014 Voided Shaq Sena MD 11/12/2014 [facility] Shaq Sena MD 11/12/2014 Office visit Shaq Sean MD 11/07/2014 [facility] Osbaldo Souza MD 11/05/2014 Office visit Herrera Lewis MD 10/29/2014 Office visit Shaq Sena MD 10/29/2014 [facility] Shaq Sena MD 10/22/2014 Office visit Shaq Sena MD 10/09/2014 Office visit Shaq Sena MD 10/06/2014 [facility] Herrera Lewis MD 10/01/2014 Office visit Shaq Sena MD 09/20/2014 Office visit Yamilet Perez MD 09/17/2014 Office visit Leela naqvi PLANT CUSTODIAN 09/03/2014 Office visit Shaq Sena MD 08/22/2014 Office visit Shaq Sena MD 08/07/2014 [facility] Shaq Sena MD 07/30/2014 Office visit Shaq Sena MD 07/30/2014 Voided Leela naqvi PLANT CUSTODIAN 07/17/2014 Office visit Shaq Sena MD 06/29/2014 [facility] Yamilet Perez MD
--- OUTSIDE RECORDS SUMMARY | 2021-09-11 18:26 | XMS REPORT ---
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 11/14/2020 12:00 AM Comprehensive metabolic panel 07/07/2021 12:00 AM Transabdominal / Transvaginal US (non-OB) [...] 2 times per day for 7 days Name Start Date Expiration [...] 6 hours as needed for 7 days Vyvanse 30 mg oral capsule 06/05/2021 07/05/2021 take 1 capsule (30 mg) by oral route once daily in the morning for 30 days Discontinued Name Start Date Discontinued Date [...] 12:00 AM Phenergan, Up to 50 Mg [facility]#[id number] Reviewed 11/24/2015 12:00 AM THER/PROPH/DIAG INJ SC/IM [...] 07/07/2021 12:00 AM ASSAY OF GONADOTROPIN (FSH) Returned 07/07/2021 12:00 AM ASSAY OF PROLACTIN Returned 07/07/2021 12:00 AM US EXAM PELVIC COMPLETE Reviewed 07/07/2021 12:00 AM TRANSVAGINAL US NON-OB Reviewed 07/07/2021 12:00 AM COMPLETE CBC AUTOMATED Returned 07/07/2021 12:00 AM ASSAY OF ESTRADIOL Returned 07/07/2021 12:00 AM ASSAY THYROID STIM HORMONE Returned 07/07/2021 12:00 AM TRICHOMONAS ASSAY W/OPTIC Returned 07/07/2021 12:00 AM SPECIMEN HANDLING OFFICE-LAB Reviewed [...] 49 U/LLIPASE 73 TSH 0.76 Insulin 325.6 History Of Immunizations Not available. History of [...] Number John cy Group Number Start Date [facility] RHC Comm [id number] N/A BCBS [employer] [facility] [id number] [address] [facility] [id number] N/A History of Encounters Visit Date Visit Type Provider 07/07/2021 Office visit 07/07/2021 Office visit Geovanny Valencia 06/05/2021 Office visit Crispin Shi APR N 04/26/2021 Office visit Oanh SARAVIA RN 03/17/2021 Office visit Crispin Lermaran APR N 03/12/2021 Office visit Crispin Shi APR N 02/26/2021 Hospital Osbaldo Souza MD 02/26/2021 Voided Lety Walker WASTE MANAGEMENT RECYCLING TECHNICIAN 01/21/2021 Office visit Crispin Shi APR N [...] Lermaran APR N 04/10/2020 Office visit Crispin Shi APR N 03/18/2020 Office visit Crispin Lermaran APR N 01/22/2020 Office visit Geovanny Valencia 01/08/2020 Office visit Geovanny Valencia 01/08/2020 Hospital Osbaldo Souza MD 12/25/2019 Office visit Geovanny Valencia 11/27/2019 Office visit Geovanny MeredithBarbara Grover M D 10/30/2019 Office visit Geovanny Grover M D 10/02/2019 Office visit Geovanny Grover M D 09/21/2019 Office visit Geovanny Grover M D 08/28/[address] Savanah valencia MD 08/15/2019 Office visit Leela BarbaBarbara Solorio n WASTE MANAGEMENT RECYCLING TECHNICIAN 07/06/2019 Office visit Crispin Shi APR N 06/13/2019 Office visit Crispin Shi APR N 08/21/2018 Office visit Mee SARAVIA RN 08/04/2018 Office visit Crispin Shi APR N 07/04/2018 Office visit Crispin Shi APR N 01/27/2016 Office visit Leela BarbaBarbara Solorio n WASTE MANAGEMENT RECYCLING TECHNICIAN 12/06/2015 Office visit Crispin Shi APR N 11/14/2015 Office visit Crispin Shi APR N 10/30/2015 Office visit Crispin Shi APR N 10/25/2015 Office visit Crispin Shi APR N 09/04/2015 Office visit Ciarra almazan MD 08/20/2015 Office visit Leela JamesonBarbara Solorio n WASTE MANAGEMENT RECYCLING TECHNICIAN 08/06/2015 Office visit Crispin Shi APR N 08/05/2015 Office visit 08/05/2015 Office visit Leela JamesonBarbara Solorio n WASTE MANAGEMENT RECYCLING TECHNICIAN 06/28/2015 Office visit Crispin Lermaran APR N 01/10/2015 Office visit Shaq Sena MD 01/07/2015 Office visit 01/07/2015 Office visit Leela Solorio n WASTE MANAGEMENT RECYCLING TECHNICIAN 12/03/2014 Office visit Shaq Sena MD 11/20/2014 [facility] Shaq Sena MD 11/14/2014 [facility] Shaq Sena MD 11/12/2014 Voided Shaq Sena MD 11/12/2014 [facility] Shaq Sena MD 11/12/2014 Office visit Shaq Sena MD 11/07/2014 [facility] Osbaldo Souza MD 11/05/2014 Office visit Herrera Lewis MD 10/29/2014 Office visit Shaq Sena MD 10/29/2014 [facility] Shaq Sena MD 10/22/2014 Office visit Shaq Sena MD 10/09/2014 Office visit Shaq Sena MD 10/06/2014 [facility] Herrera Lewis MD 10/01/2014 Office visit Shaq Sena MD 09/20/2014 Office visit Yamilet Perez MD 09/17/2014 Office visit Leela naqvi WASTE MANAGEMENT RECYCLING TECHNICIAN 09/03/2014 Office visit Shaq Sena MD 08/22/2014 Office visit Shaq Sena MD 08/07/2014 [facility] Shaq eSna MD 07/30/2014 Office visit Shaq Sena MD 07/30/2014 Voided Leela naqvi WASTE MANAGEMENT RECYCLING TECHNICIAN 07/17/2014 Office visit Shaq Sena MD 06/29/2014 [facility] Yamilet Perez MD
[2021-09-11] MEDS ORDERED: ASPIRIN 81 MG CHEW (CHILDREN'S ASA) PO ONE (18:30)
[2021-09-11] MEDS ORDERED: NITROGLYCERIN 2% OINT 1 GM UNIT DOSE PACKET TOP STA (18:30)
[2021-09-11 18:38] LABS: BASOPHILS # (AUTO) 0.1 10^3/uL (0.0-0.1); BASOPHILS % (AUTO) 1 % (0-10); EOSINOPHILS # (AUTO) 0.2 10^3/uL (0.0-0.3); EOSINOPHILS % (AUTO) 2 % (0-10); HEMATOCRIT 40 % (35-52); HEMOGLOBIN 13.2 g/dL (11.5-16.0); LYMPHOCYTES # (AUTO) 2.8 10^3/uL (1.0-4.0); LYMPHOCYTES % (AUTO) 27 % (12-44); MEAN CORPUSCULAR HEMOGLOBIN 25 pg (25-34); MEAN CORPUSCULAR HGB CONC 33 g/dL (32-36); MEAN CORPUSCULAR VOLUME 77 fL (80-99); MEAN PLATELET VOLUME 9.2 fL (9.0-12.2); MONOCYTES # (AUTO) 0.7 10^3/uL (0.0-1.0); MONOCYTES % (AUTO) 6 % (0-12); NEUTROPHILS # (AUTO) 6.8 10^3/uL (1.8-7.8); NEUTROPHILS % (AUTO) 64 % (42-75); PLATELET COUNT 246 10^3/uL (130-400); WHITE BLOOD COUNT 10.5 10^3/uL (4.3-11.0)
[2021-09-11 18:50] LABS: CHLORIDE 103 MMOL/L (98-107); POTASSIUM 3.6 MMOL/L (3.6-5.0); SODIUM 139 MMOL/L (135-145)
[2021-09-11 18:52] LABS: GLUCOSE 94 MG/DL (70-105); TOTAL PROTEIN 7.8 GM/DL (6.4-8.2)
[2021-09-11 18:53] LABS: CARBON DIOXIDE 23 MMOL/L (21-32)
[2021-09-11 18:54] LABS: BILIRUBIN,TOTAL 0.5 MG/DL (0.1-1.0)
[2021-09-11 18:54] LABS: BILIRUBIN,URINE NEGATIVE (NEGATIVE); CLARITY,URINE CLEAR; COLOR,URINE YELLOW; GLUCOSE, URINE (UA) NEGATIVE (NEGATIVE); KETONES,URINE NEGATIVE (NEGATIVE); LEUKOCYTE ESTERASE ,URINE NEGATIVE (NEGATIVE); NITRITE,URINE NEGATIVE (NEGATIVE); PROTEIN,URINE NEGATIVE (NEGATIVE)
[2021-09-11 18:56] LABS: ALKALINE PHOSPHATASE 70 U/L (40-136); CREATININE SERUM 0.58 MG/DL (0.60-1.30); FIBRIN DEGRADATION PRODUCTS <= 0.27 UG/ML (0.00-0.49); GFR ESTIMATED 118; PARTIAL THROMBOPLASTIN TIME 30 SEC (24-35)
[2021-09-11 18:57] LABS: BUN/CREATININE RATIO 16
[2021-09-11 18:59] LABS: ALANINE AMINOTRANSFERASE 49 U/L (0-55); MAGNESIUM 1.8 MG/DL (1.6-2.4)
[2021-09-11 19:00] LABS: CREATINE KINASE 101 U/L (29-168); LIPASE 19 U/L (8-78)
[2021-09-11 19:03] LABS: BACTERIA,URINE LARGE /HPF; WBC,URINE RARE /HPF
[2021-09-11 19:05] LABS: ERYTHROCYTE SEDIMENTATION RATE 43 MM/HR (0-20)
--- NOTE | 2021-09-11 19:06 | ED Chest Pain ---
General Stated Complaint: CHEST PAIN Source: patient History of Present Illness Date Seen by Provider: Sep 11, 2021 Time Seen by Provider: 18:23 Initial Comments PT ARRIVES VIA POV FROM HOME C/O CHEST PAIN X 2 HOURS PAIN IS IN LEFT UPPER CHEST, RADIATES TO LEFT SHOULDER BLADE, AND LEFT HAND FEELS TINGLY RATES PAIN 7/10 PAIN IS WORSE WITH DEEP BREATHS WAS SITTING AT COMPUTER WHEN PAIN BEGAN C/O SLIGHT SHORTNESS OF BREATH C/O SLIGHT NAUSEA, NO VOMITING. NO ABDOMINAL PAIN C/O SWEATS WHEN PAIN BEGAN NO COUGH NO FEVER OR CHILLS NO CHANGE IN CHRONIC LEG SWELLING, NO PAIN IN CALVES NO LOSS OF TASTE OR SMELL PT WAS RECENTLY DX WITH SINUS INFECTION AND FINISHED ANTIBIOTICS A FEW DAYS AGO, STILL HAS SOME NASAL DRAINAGE/CONGESTION--SEEN AT [facility] PT HAS NOT HAD COVID-19 VACCINE, BUT HAS HAD FLU VACCINE PT HAS HISTORY OF ASTHMA, BUT NO PROBLEMS RECENTLY, NOR USED HER INHALER PT HAS HISTORY OF PERICARDITIS MANY YEARS AGO, AND PAIN WAS SIMILAR PT DOES NOT TAKE ANY MEDICATIONS OF ANY KIND. LMP--08/27/21. NORMAL. S/P BTL PCP: [facility], BUT DOES NOT ROUTINELY GO TO DR--PT LIVES IN [place] Allergies and Home Medications Allergies Coded Allergies: No Allergy Information Available (Unverified , 09/11/21) Patient Home Medication List Hydralazine HCl (Hydralazine HCl) 10 Mg Tablet, 10 MG PO TID PRN for BLOOD PRES SURE Prescribed by: LORAINE MATHIAS on 09/11/212132 Review of Systems Review of Systems Constitutional: see HPI; No chills; diaphoresis; No fever EENTM: See HPI, Nose Congestion; No Throat Pain Respiratory: See HPI, Shortness of Air Cardiovascular: See HPI, Chest Pain; Denies Lightheadedness, Denies Palpitations, Denies Syncope Gastrointestinal: See HPI; Denies Diarrhea; Nausea; Denies Vomiting Genitourinary: No Symptoms Reported Musculoskeletal: see HPI, back pain Skin: no symptoms reported Psychiatric/Neurological: See HPI Endocrine: No Symptoms Reported Hematologic/Lymphatic: No Symptoms Reported Past Tzohapb-Epvczg-Latbfh Hx Patient Social History Tobacco Use?: No Substance use?: No Alcohol Use?: No Past Medical History Surgeries: Yes (D&C X 3) Appendectomy, Tonsillectomy, Tubal Ligation Respiratory: Yes Asthma Cardiac: Yes Pericarditis Neurological: No Reproductive Disorders: No PUDDLER PILE DRIVING History: Tubal Ligation Genitourinary: No Gastrointestinal: No Musculoskeletal: No Endocrine: Yes (OBESITY) HEENT: No Cancer: No Psychosocial: Yes Anxiety, Depression Integumentary: No Blood Disorders: No Physical Exam Vital Signs Vital Signs - First Documented 09/11/21 18:20 Temp 36.8 Pulse 77 Resp 22 B/P (MAP) 180/104 (129) Pulse Ox 99 O2 Delivery Room Air Capillary Refill : Height, Weight, BMI Height: '" Weight: lbs. oz. kg; BMI Method: General Appearance: No Apparent Distress, WD/WN, Obese, Other (DOES NOT APPEAR ILL OR TO BE IN ANY DISCOMFORT OR DISTRESS) HEENT: Normal ENT Inspection Neck: Full Range of Motion, Normal Inspection, Non Tender, Supple Respiratory: Normal Breath Sounds, No Accessory Muscle Use, No Respiratory Distress Cardiovascular: Regular Rate, Rhythm, No Edema, No JVD, No Murmur, Normal Peripheral Pulses Gastrointestinal: Non Tender, Soft Extremity: Normal Capillary Refill, Normal Inspection, Normal Range of Motion, Non Tender, No Calf Tenderness, No Pedal Edema Neurologic/Psychiatric: Alert, Oriented x3, No Motor/Sensory Deficits, Normal 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, 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 Norm as Tested Skin: Normal Color, Warm/Dry Progress/Results/Core Measures Results/Orders Lab Results Laboratory Tests Test 09/11/21 18:30 09/11/21 18:45 09/11/21 18:48 09/11/21 21:06 Range/Units White Blood Count 10.5 4.3-11.0 10^3/uL Red Blood Count 5.23 H 3.80-5.11 10^6/uL Hemoglobin 13.2 11.5-16.0 g/dL Hematocrit 40 35-52 % Mean Corpuscular Volume 77 L 80-99 fL Mean Corpuscular Hemoglobin 25 25-34 pg Mean Corpuscular Hemoglobin Concent 33 32-36 g/dL Red Cell Distribution Width 14.5 10.0-14.5 % Platelet Count 246 130-400 10^3/uL Mean Platelet Volume 9.2 9.0-12.2 fL Immature Granulocyte % (Auto) 1 % Neutrophils (%) (Auto) 64 42-75 % Lymphocytes (%) (Auto) 27 12-44 % Monocytes (%) (Auto) 6 0-12 % Eosinophils (%) (Auto) 2 0-10 % Basophils (%) (Auto) 1 0-10 % Neutrophils # (Auto) 6.8 1.8-7.8 10^3/uL Lymphocytes # (Auto) 2.8 1.0-4.0 10^3/uL Monocytes # (Auto) 0.7 0.0-1.0 10^3/uL Eosinophils # (Auto) 0.2 0.0-0.3 10^3/uL Basophils # (Auto) 0.1 0.0-0.1 10^3/uL Immature Granulocyte # (Auto) 0.1 0.0-0.1 10^3/uL Erythrocyte Sedimentation Rate 43 H 0-20 MM/HR Prothrombin Time 14.0 12.2-14.7 SEC INR Comment 1.0 0.8-1.4 Activated Partial Thromboplast Time 30 24-35 SEC D-Dimer <= 0.27 0.00-0.49 UG/ML Sodium Level 139 135-145 MMOL/L Potassium Level 3.6 3.6-5.0 MMOL/L Chloride Level 103 98-107 MMOL/L Carbon Dioxide Level 23 21-32 MMOL/L Anion Gap 13 5-14 MMOL/L Blood Urea Nitrogen 9 7-18 MG/DL Creatinine 0.58 L 0.60-1.30 MG/DL Estimat Glomerular Filtration Rate 118 BUN/Creatinine Ratio 16 Glucose Level 94 70-105 MG/DL Calcium Level 9.0 8.5-10.1 MG/DL Corrected Calcium 9.0 8.5-10.1 MG/DL Magnesium Level 1.8 1.6-2.4 MG/DL Total Bilirubin 0.5 0.1-1.0 MG/DL Aspartate Amino Transf (AST/SGOT) 25 5-34 U/L Alanine Aminotransferase (ALT/SGPT) 49 0-55 U/L Alkaline Phosphatase 70 40-136 U/L Total Creatine Kinase 101 29-168 U/L Creatine Kinase MB 1.3 <6.6 NG/ML Myoglobin 19.3 10.0-92.0 NG/ML Troponin I < 0.028 < 0.028 <0.028 NG/ML C-Reactive Protein High Sensitivity 0.48 0.00-0.50 MG/DL B-Type Natriuretic Peptide < 10.0 <100.0 PG/ML Total Protein 7.8 6.4-8.2 GM/DL Albumin 4.0 3.2-4.5 GM/DL Lipase 19 8-78 U/L Serum Test, Qualitative NEGATIVE NEGATIVE Influenza Type A Antigen NEGATIVE NEGATIVE Influenza Type B Antigen NEGATIVE NEGATIVE SARS-CoV-2 RNA (RT-PCR) Negative Negative Urine Color YELLOW Urine Clarity CLEAR Urine pH 7.0 5-9 Urine Specific [place] 1.015 L 1.016-1.022 Urine Protein NEGATIVE NEGATIVE Urine Glucose (UA) NEGATIVE NEGATIVE Urine Ketones NEGATIVE NEGATIVE Urine Nitrite NEGATIVE NEGATIVE Urine Bilirubin NEGATIVE NEGATIVE Urine Urobilinogen 0.2 < = 1.0 MG/DL Urine Leukocyte Esterase NEGATIVE NEGATIVE Urine RBC (Auto) 2+ H NEGATIVE Urine RBC NONE /HPF Urine WBC RARE /HPF Urine Squamous Epithelial Cells 10-25 H /HPF Urine Crystals NONE /LPF Urine Bacteria LARGE H /HPF Urine Casts NONE /LPF Urine Mucus NEGATIVE /LPF Urine Culture Indicated NO My Orders Orders - LORAINE MATHIAS DO Ed Iv/Invasive Line Start (09/11/21 18:30) Ekg Tracing (09/11/21 18:30) Monitor-Rhythm Ecg Trace Only (09/11/21 18:30) Chest 1 View, Ap/Pa Only (09/11/21 18:30) Bnp [place] (09/11/21 18:30) Cbc With Automated Diff (09/11/21 18:30) Comprehensive Metabolic Panel (09/11/21 18:30) Creatine Kinase (09/11/21 18:30) Creatine Kinase Mb (09/11/21 18:30) Hs C Reactive Protein (09/11/21 18:30) Fibrin Degradation Products (09/11/21 18:30) Hcg,Qualitative Serum (09/11/21 18:30) Lipase (09/11/21 18:30) Magnesium (09/11/21 18:30) Protime With Inr (09/11/21 18:30) Partial Thromboplastin Time (09/11/21 18:30) Ua Culture If Indicated (09/11/21 18:30) Erythrocyte Sedimentation Rate (09/11/21 18:30) Myoglobin Serum (09/11/21 18:30) Troponin I Lisa (09/11/21 18:30) Influenza A & B Antigens (09/11/21 18:30) O2 (09/11/21 18:30) Ed Iv/Invasive Line Start (09/11/21 18:30) Nitroglycerin Ointment (Nitrobid Ointme (09/11/21 18:30) Aspirin Chewable Tablet (Baby Aspirin Ch (09/11/21 18:30) Covid 19 Inhouse Test (09/11/21 18:31) Isolation Central Supply Req (09/11/21 18:31) Coronavirus Sars-Cov-2 So 2018 (09/11/21 19:18) Ketorolac Injection (Toradol Injection) (09/11/21 19:45) Ekg Tracing (09/11/21 21:01) Troponin I [place] (09/11/21 21:01) Acetaminophen Tablet (Tylenol Tablet) (09/11/21 21:15) Hydralazine Injection (Apresoline Inject (09/11/21 21:15) Medications Given in ED Current Medications Medications Dose Ordered Sig/Radha Route Start Time Stop Time Status Last Admin Dose Admin Acetaminophen 1,000 mg ONCE ONCE PO 09/11/21 21:15 09/11/21 21:16 DC 09/11/21 21:20 1,000 MG Aspirin 324 mg ONCE ONCE PO 09/11/21 18:30 09/11/21 18:33 DC 09/11/21 18:38 324 MG Hydralazine HCl 10 mg ONCE ONCE IV 09/11/21 21:15 09/11/21 21:16 DC 09/11/21 21:21 10 MG Ketorolac Tromethamine 30 mg ONCE ONCE IVP 09/11/21 19:45 09/11/21 19:46 DC 09/11/21 20:25 30 MG Vital Signs/I&O 09/11/21 18:20 Temp 36.8 Pulse 77 Resp 22 B/P (MAP) 180/104 (129) Pulse Ox 99 O2 Delivery Room Air Progress Progress Note : Progress Note PLACED IN ISOLATION ROOM PPE WORN COVID-19 TESTING DONE GIVEN ASPIRIN AND NITROPASTE FOR CHEST PAIN WELL ELEVATED BLOOD PRESSURE GIVEN TORADOL FOR PAIN GIVEN TYLENOL FOR HEADACHE ALSO GIVEN HYDRALAZINE FOR ELEVATED BLOOD PRESSURE 3 HOUR REPEAT TROPONIN AND EKG DONE--EKG UNCHANGED AND REPEAT TROPONIN IS NEGATIVE Initial ECG Impression Date: Sep 11, 2021 Initial ECG Impression Time: 18:21 Initial ECG Rate: 80 Initial ECG Rhythm: Normal Sinus Initial ECG Comparisson: No Previous ECG Available Diagnostic Imaging Comments CXR--PER RADIOLOGIST REPORT AT 1921 FINDINGS: The lung volumes are normal. No focal consolidation is seen. No large pleural effusion or pneumothorax is seen. The cardiomediastinal silhouette is normal in size and contour. No acute osseous abnormality is seen. IMPRESSION: No acute pulmonary abnormality seen. Reviewed: Reviewed by Me Departure Impression Primary Impression: Chest pain Additional Impression: HTN (hypertension) Disposition: HOME, SELF-CARE Condition: Stable Departure-Patient Inst. Referrals: [facility] Patient Instructions: Chest Pain (DC), DASH Diet, High Blood Pressure (DC) Add. Discharge Instructions: HOME, REST TAKE 81 MG ASPIRIN DAILY TYLENOL NEEDED FOR PAIN FOLLOW UP WITH [facility] THIS WEEK FOR FURTHER CARE--CALL IN AM TO SCHEDULE APPOINTMENT RETURN TO ER IF WORSE Scripts Hydralazine HCl (Hydralazine HCl) 10 Mg Tablet 10 MG PO TID PRN for BLOOD PRESSURE, #15 TAB TAKE NEEDED THREE TIMES A DAY FOR SYSTOLIC BP > 160 OR DIASTOLIC BP > 100 Prov: LORAINE MATHIAS DO 09/11/21 LORAINE MATHIAS DO Sep 11, 2021 19:06
[2021-09-11 19:07] LABS: CREATINE KINASE MB 1.3 NG/ML (<6.6)
--- NOTE | 2021-09-11 19:20 | Diagnostic Imaging Report ---
PATIENT HISTORY: cp. TECHNIQUE: Single frontal view of the chest. COMPARISON: None FINDINGS: The lung volumes are normal. No focal consolidation is seen. No large pleural effusion or pneumothorax is seen. The cardiomediastinal silhouette is normal in size and contour. No acute osseous abnormality is seen. IMPRESSION: No acute pulmonary abnormality seen. Dictated by: Dictated on workstation # [id number]
[2021-09-11] MEDS ORDERED: KETOROLAC 30 MG/ML VIAL IVP ONE (19:45)
[2021-09-11] MEDS ORDERED: ACETAMINOPHEN 500 MG TAB (TYLENOL) PO ONE (21:15)
[2021-09-11] MEDS ORDERED: hydrALAZINE (APESOLINE) 20 MG/ML VIAL IV ONE (21:15)
[2021-09-11] MEDS ORDERED: HYDR-3922 PO (21:33)
[2021-09-11 22:01] VITALS: BP 170/100
== END 2021-09-11 22:01 | disposition home or self-care (01) ==
LOC: ER 18:21
DX: R07.9 Chest pain, unspecified (principal); I10 Essential (primary) hypertension; E66.9 Obesity, unspecified; J45.909 Unspecified asthma, uncomplicated; Z20.822 Contact with and (suspected) exposure to COVID-19
CPT/HCPCS: 36415; 71045; 80053; 81000; 82550; 82553; 83690; 83735; 83874; 83880; 84484; 84703; 85025; 85379; 85610; 85652; 85730; 86141; 87635; 87636; 87804; 93005; 93041